=== PATIENT | female | born 1990 | race Caucasian/White ===

== ENCOUNTER 2017-08-20 07:17 | Emergency (ER) | payer OTHER ==
[~2017-08-20] VITALS: Ht 165.1 cm; Wt 59.0 kg
[~2017-08-20 07:17] MED LIST: Albuterol17 G1 INH; Amoxicillin500 MG PO; Amoxicillin875 MG PO; GUAIATUSSIN AC L5 ML PO; META800 PO; Naprosyn500 MG PO; PRED20 PO; Percocet 5-3251 EACH PO; Phenergan/Code480 ML PO
[2017-08-20] MEDS ORDERED: LAMO25 PO (07:35)
[2017-08-20] MEDS ORDERED: CLON1 PO (07:36)
[2017-08-20] MEDS ORDERED: BUPR150ER PO (07:36)
[2017-08-20] MEDS ORDERED: Norco 5-325 Ta1 EACH PO (07:54)
[2017-08-20] MEDS ORDERED: Cleocin HCl150 MG PO (07:54)
== END 2017-08-20 08:10 | disposition home or self-care (01) ==
LOC: ER 07:17
DX: L03.011 Cellulitis of right finger (principal); F32.9 Major depressive disorder, single episode, unspecified; F41.9 Anxiety disorder, unspecified; F17.210 Nicotine dependence, cigarettes, uncomplicated; Z88.5 Allergy status to narcotic agent; Z88.8 Allergy status to other drugs, medicaments and biological substances; Z79.899 Other long term (current) drug therapy
CPT/HCPCS: 10060; 99283

== ENCOUNTER 2018-05-01 16:41 | Emergency (ER) | payer OTHER ==
[~2018-05-01] VITALS: Ht 165.1 cm; Wt 63.5 kg
[~2018-05-01 16:41] MED LIST changes: +BUPR150ER PO; +CLON1 PO; +Cleocin HCl150 MG PO; +LAMO25 PO; +Norco 5-325 Ta1 EACH PO
[2018-05-01] MEDS ORDERED: HYDR1TAB94 PO (18:31)
[2018-05-01] MEDS ORDERED: ONDA4ODT MM (18:31)
== END 2018-05-01 18:43 | disposition home or self-care (01) ==
LOC: ER 16:41
DX: S09.90XA Unspecified injury of head, initial encounter (principal); S20.02XA Contusion of left breast, initial encounter; F32.9 Major depressive disorder, single episode, unspecified; F41.9 Anxiety disorder, unspecified; F17.210 Nicotine dependence, cigarettes, uncomplicated; Z88.5 Allergy status to narcotic agent; Z88.8 Allergy status to other drugs, medicaments and biological substances; Z79.899 Other long term (current) drug therapy; V43.52XA Car driver injured in collision with other type car in traffic accident, initial encounter
CPT/HCPCS: 71101; 99284-25

== ENCOUNTER 2019-10-18 22:26 | Emergency (ER) | payer OTHER ==
[~2019-10-18] VITALS: Ht 165.1 cm; Wt 59.0 kg
[~2019-10-18 22:26] MED LIST changes: +HYDR1TAB94 PO; +ONDA4ODT MM
== END 2019-10-18 23:35 | disposition home or self-care (01) ==
LOC: ER 22:26
DX: S43.101A Unspecified dislocation of right acromioclavicular joint, initial encounter (principal); F32.9 Major depressive disorder, single episode, unspecified; F41.9 Anxiety disorder, unspecified; F17.210 Nicotine dependence, cigarettes, uncomplicated; F11.90 Opioid use, unspecified, uncomplicated; Z88.5 Allergy status to narcotic agent; Z88.8 Allergy status to other drugs, medicaments and biological substances; Z79.899 Other long term (current) drug therapy; W03.XXXA Other fall on same level due to collision with another person, initial encounter; Y92.009 Unspecified place in unspecified non-institutional (private) residence as the place of occurrence of the external cause
CPT/HCPCS: 73030; 99283-25

== ENCOUNTER 2021-03-04 20:16 | Inpatient (IN) | payer OTHER ==
[~2021-03-04] VITALS: Ht 165.1 cm; Wt 67.4 kg
[2021-03-04 21:04] LABS: Hematocrit 35.9 % (33.0-51.0); Hemoglobin 12.4 g/dL (11.5-16.0); Mean Corpuscular HGB 27.9 pg (26.0-34.0); Mean Corpuscular HGB Conc 34.5 g/dL (31.5-36.5); Mean Corpuscular Volume 81 fL (80-100); Mean Platelet Volume 9.5 fL (9.1-12.4); Platelet Count 361 K/mm3 (150-400); RDW Coefficient Variation 13.6 % (11.7-14.2); RDW Standard Deviation 40.3 fL (35.1-46.3); Red Blood Cell Count 4.45 M/mm3 (3.80-5.20); White Blood Cell Count 30.03 K/mm3 (4.00-11.30)
[2021-03-04 21:22] LABS: BAND PERCENT MAN 4 % (0-8); BASOPHILS PERCENT MAN 0 % (0-2); EOSINOPHILS PERCENT MAN 0 % (0-6); LYMPHOCYTES % ATYPICAL MANUAL 2 % (0-0); LYMPHOCYTES PERCENT MAN 17 % (21-46); MONOCYTES PERCENT MAN 9 % (4-13); NEUTROPHILS ABSOLUTE MAN 21.62 K/mm3 (1.96-9.15); SEG NEUTROPHILS PERCENT MAN 68 % (41-73); TOTAL CELLS COUNTED 100
[2021-03-04 21:27] LABS: Alanine Aminotransfer (ALT/SGP 69 U/L (12-78); Albumin, Blood 1.7 g/dL (3.4-5.0); Albumin/Globulin Ratio 0.3 (0.8-1.8); Alk Phos 239 U/L (50-136); Anion Gap 10 mmol/L (6-16); Aspartate Aminotrans (AST/SGOT 100 U/L (12-37); Bilirubin, Total 0.5 mg/dL (0.1-1.0); Blood Urea Nitrogen 8 mg/dL (8-24); Bun/Creatinine Ratio 13.3 (12.0-20.0); CO2, Blood 29 mmol/L (21-32); Chloride, Blood 89 mmol/L (98-108); Globulin, Blood 6.3 g/dL (2.2-4.0); Glomerular Filtration Rate >60 (60-); Glucose, Blood 107 mg/dL (70-99); Potassium, Blood 3.4 mmol/L (3.5-5.5); Sodium, Blood 128 mmol/L (136-145)
[2021-03-04 22:20] LABS: Influenza A, PCR NEGATIVE (NEGATIVE); Influenza B, PCR NEGATIVE (NEGATIVE); Resp Syncytial Virus, PCR NEGATIVE (NEGATIVE); SARS-Cov-2 (COVID-19) PCR, MMC NEGATIVE (NEGATIVE)
[2021-03-04 22:27] LABS: Source, Urine Clean Catch
[2021-03-04 22:30] LABS: Bilirubin, Urine Neg (Neg); Blood, Urine 3+ (Neg); Glucose Qualitative, Urine Neg (Neg); Ketones, Urine Neg (Neg); Leukocyte Esterase, Urine 1+ (Neg); Nitrite, Urine Neg (Neg); Protein, Urine 2+ (Neg); Specific Gravity, Urine 1.015 (1.003-1.022); Urobilinogen, Urine NORM (Normal); pH, Urine 6.5 (5.0-8.0)
[2021-03-04 22:31] LABS: Appearance, Urine Clear (Clear); Color, Urine Yellow (P-Yellow)
[2021-03-04 22:36] LABS: Red Blood Cells, Urine 0-2 /hpf (0-2); Squamous Epithelial Cells Few /hpf (Few); White Blood Cells, Urine 0-2 /hpf (0-5)
[2021-03-04 22:37] LABS: Amorphous Light (0-Heavy); Bacteria Few /hpf
[2021-03-04 23:33] LABS: Anti-Xa UFH, PHA Monitoring <0.10 IU/mL; International Normalized Ratio 1.26
[2021-03-05] MEDS ORDERED: CLONAZEPAM1 MG (00:10)
[2021-03-05] MEDS ORDERED: BUPRENORPHIN-N1 EAC5 SL (00:10)
--- NOTE | 2021-03-05 04:38 | NUR ---
PATIENT ADMIT FROM ED 0026 VIA STRETCHER, ALERT AND ORIENTATED, STAND BY ASSIST TO BEDSIDE COMMODE, RA RR 12-16 O2 SAT 92-93%, LUNGS COARSE, DIMINISHED LOWER LOBES, HEART RATE 120-130'S NEW ORDER FOR LOPRESSOR 12.5 BID PO, PATIENT AROUND 0300 OXYGEN 88-89 % CURRENTLY ON 3L NC 92-95% O2 SATURATIONS, ABDOMEN SOFT NONTENDER BTX 4 LAST BM 03/04/21 SOFT REPORTED DIARRHEA AT HOME FOR THREE DAYS NO NOTED BM SINCE ADMISSION, URINE IS CLEAR YELLOW NONODOROUS, SKIN, TRACK PACE SCABBED IN RAC, TATOO'S OTHERWISE INTACT, LFA IV AND RFA IV INFUSING, HEPARIN 18UNITS/KG/HR AT 21.6ML/HR NEXT DRAW AT 0600. PATIENT KEPT NPO OVERNIGHT, WILL CONTINUE TO MONITOR ON TELEMETRY HEART HAS DECREASED TO 110-120'S.
[2021-03-05 06:30] LABS: BASOPHILS ABSOLUTE AUTO 0.17 K/mm3 (0.00-0.23); BASOPHILS PERCENT AUTO 1 % (0-2); EOSINOPHILS ABSOLUTE AUTO 0.11 K/mm3 (0.00-0.68); EOSINOPHILS PERCENT AUTO 0 % (0-6); Hematocrit 33.1 % (33.0-51.0); Hemoglobin 10.9 g/dL (11.5-16.0); Mean Corpuscular HGB 27.9 pg (26.0-34.0); Mean Corpuscular HGB Conc 32.9 g/dL (31.5-36.5); Mean Corpuscular Volume 85 fL (80-100); Mean Platelet Volume 9.2 fL (9.1-12.4); Platelet Count 289 K/mm3 (150-400); RDW Standard Deviation 43.3 fL (35.1-46.3); Red Blood Cell Count 3.91 M/mm3 (3.80-5.20); White Blood Cell Count 26.43 K/mm3 (4.00-11.30)
[2021-03-05 06:34] LABS: IMMATURE GRAN PERCENT AUTO 1 % (0-1); LYMPHOCYTES ABSOLUTE AUTO 2.77 K/mm3 (0.84-5.20); LYMPHOCYTES PERCENT AUTO 11 % (21-46); MONOCYTES ABSOLUTE AUTO 2.36 K/mm3 (0.16-1.47); MONOCYTES PERCENT AUTO 9 % (4-13); NEUTROPHILS ABSOLUTE AUTO 20.72 K/mm3 (1.96-9.15); NEUTROPHILS PERCENT AUTO 79 % (41-73)
[2021-03-05 06:45] LABS: Alanine Aminotransfer (ALT/SGP 49 U/L (12-78); Albumin/Globulin Ratio 0.4 (0.8-1.8); Alk Phos 179 U/L (50-136); Anion Gap 8 mmol/L (6-16); Aspartate Aminotrans (AST/SGOT 55 U/L (12-37); Bilirubin, Total 0.6 mg/dL (0.1-1.0); Blood Urea Nitrogen 6 mg/dL (8-24); Bun/Creatinine Ratio 11.2 (12.0-20.0); CO2, Blood 27 mmol/L (21-32); Calcium, Blood 7.9 mg/dL (8.5-10.1); Chloride, Blood 102 mmol/L (98-108); Creatinine, Blood 0.54 mg/dL (0.40-1.00); Globulin, Blood 5.1 g/dL (2.2-4.0); Glomerular Filtration Rate >60 (60-); Glucose, Blood 116 mg/dL (70-99); Potassium, Blood 3.4 mmol/L (3.5-5.5); Sodium, Blood 137 mmol/L (136-145); Total Protein, Blood 7.1 g/dL (6.4-8.2)
[2021-03-05 07:20] LABS: BAND PERCENT MAN 1 % (0-8); BASOPHILS PERCENT MAN 0 % (0-2); EOSINOPHILS ABSOLUTE MAN 0.26 K/mm3 (0.00-0.68); EOSINOPHILS PERCENT MAN 1 % (0-6); LYMPHOCYTES PERCENT MAN 11 % (21-46); MONOCYTES ABSOLUTE MAN 0.52 K/mm3 (0.16-1.47); MONOCYTES PERCENT MAN 2 % (4-13); NEUTROPHILS ABSOLUTE MAN 22.72 K/mm3 (1.96-9.15); SEG NEUTROPHILS PERCENT MAN 85 % (41-73); TOTAL CELLS COUNTED 100
--- NOTE | 2021-03-05 17:57 | NUR ---
SHIFT NOTE PT WITH FEVER AT THE END OF SHIFT WITH HR IN 130s, WILL REASSESS IN [address] FITCH IS CALLED ABOUT HR AND A 500ML BOLUS ORDERED FOR HR, LS CLEAR PRIOR TO BOLUS AND AT THE END OF BOLUS THAT IS CONCLUDING. PT REAMINS TACHY AT THE TIME OF THIS NOTE BUT IS SLOWLY TRENDING DOWN POST TYLENOL ADMINISTRATION. PT WITH GOOD PO INTAKE, UP TO BEDSIDE COMMODE WITH 1,200ML OUTPUT WHEN UP TO COMMODE. PT A/O X4, A LITTLE SLOW TO ANSWER QUESTIONS BUT ANSWERS APPROPPRIATELY. HEPARIN DRIP INFUSING AT 20MCG/KG/HR. PT HAS RECIEVED VANCOMYCIN AND ZOSYN TODAY. PT DENIES ANY NEW OR WORSENING CP OR SOB. VSS ASIDE FROM FEVER AT THE END OF THE SHIFT.
[2021-03-05 22:34] LABS: Vancomycin, Trough 3.6 ug/mL (5.0-10.0)
[2021-03-06 03:55] LABS: BASOPHILS ABSOLUTE AUTO 0.08 K/mm3 (0.00-0.23); BASOPHILS PERCENT AUTO 0 % (0-2); EOSINOPHILS ABSOLUTE AUTO 0.23 K/mm3 (0.00-0.68); EOSINOPHILS PERCENT AUTO 1 % (0-6); Hematocrit 29.3 % (33.0-51.0); Hemoglobin 9.8 g/dL (11.5-16.0); IMMATURE GRAN ABSOLUTE AUTO 0.23 K/mm3 (0.00-0.10); IMMATURE GRAN PERCENT AUTO 1 % (0-1); LYMPHOCYTES ABSOLUTE AUTO 3.91 K/mm3 (0.84-5.20); LYMPHOCYTES PERCENT AUTO 16 % (21-46); MONOCYTES ABSOLUTE AUTO 1.52 K/mm3 (0.16-1.47); MONOCYTES PERCENT AUTO 6 % (4-13); Mean Corpuscular HGB 27.8 pg (26.0-34.0); Mean Corpuscular HGB Conc 33.4 g/dL (31.5-36.5); Mean Corpuscular Volume 83 fL (80-100); Mean Platelet Volume 9.2 fL (9.1-12.4); NEUTROPHILS ABSOLUTE AUTO 18.81 K/mm3 (1.96-9.15); NEUTROPHILS PERCENT AUTO 76 % (41-73); Platelet Count 345 K/mm3 (150-400); RDW Coefficient Variation 14.4 % (11.7-14.2); RDW Standard Deviation 43.9 fL (35.1-46.3); Red Blood Cell Count 3.52 M/mm3 (3.80-5.20); White Blood Cell Count 24.78 K/mm3 (4.00-11.30)
[2021-03-06 04:13] LABS: Alanine Aminotransfer (ALT/SGP 37 U/L (12-78); Albumin, Blood 1.6 g/dL (3.4-5.0); Albumin/Globulin Ratio 0.3 (0.8-1.8); Alk Phos 176 U/L (50-136); Anion Gap 8 mmol/L (6-16); Aspartate Aminotrans (AST/SGOT 40 U/L (12-37); Bilirubin, Total 0.4 mg/dL (0.1-1.0); Blood Urea Nitrogen 5 mg/dL (8-24); Bun/Creatinine Ratio 9.3 (12.0-20.0); CO2, Blood 28 mmol/L (21-32); Calcium, Blood 7.7 mg/dL (8.5-10.1); Chloride, Blood 100 mmol/L (98-108); Creatinine, Blood 0.54 mg/dL (0.40-1.00); Globulin, Blood 4.8 g/dL (2.2-4.0); Glomerular Filtration Rate >60 (60-); Glucose, Blood 141 mg/dL (70-99); Potassium, Blood 3.1 mmol/L (3.5-5.5); Sodium, Blood 136 mmol/L (136-145); Total Protein, Blood 6.4 g/dL (6.4-8.2)
--- NOTE | 2021-03-06 05:03 | NUR ---
ALERT AND ORIENTATED, CALLS APPROPRIATELY, PATIENT HEART RATE 120-147 AROUND 0300 GAVE LOPRESSOR 5MG IVP HR NOW 117 PATIENT ASYMPTOMATIC, TEMPERATURE 101.7 GAVE TYLENOL 1000MG TAB PO TEMPERATURE 97.1 NOW, PATIENT XA <0.10 AWAITING NEW ORDERS PHARMACY WILL PUT IN, POTASSIUM 3.1 NEW ORDERS FOR KCL 40MEQ X 1 IV WILL BE DIFFICULT TO BE ON TIME, PATIENT ONLY HAS A MIDLINE AND LFA IV RUNNING HEPARIN NO PIGGYBACKS, IV RUNNING MAINTENCE FLUIDS WITH ANTIBIOTICS, PATIENT COULD USE ANOTHER IV BUT IS A DIFFICULT STICK, WILL ADDRESS WITH DAYSHIFT ON THOUGHTS ABOUT A PICC LINE FOR PATIENT.
--- NOTE | 2021-03-06 05:47 | NUR ---
POTASSIUM NOT RECEIVED FROM PHARMACY UNTIL 539, STARTED IMMEDIATELY, CHARGE AWARE WILL NEED PICC LINE AND MEDICATIONS WILL BE LATE, LACK OF ACCESS TO RUN ALL CURRENT FLUIDS
[2021-03-06 14:17] LABS: Influenza A, PCR NEGATIVE (NEGATIVE); Influenza B, PCR NEGATIVE (NEGATIVE); Resp Syncytial Virus, PCR NEGATIVE (NEGATIVE); SARS-Cov-2 (COVID-19) PCR, MMC NEGATIVE (NEGATIVE)
--- NOTE | 2021-03-06 19:06 | NUR ---
SHIFT SUMMARY PT APPEAR TO BE SLEEPING FOR MAJORITY OF SHIFT, WAKES EASILY, ORIENTED x4; CALM AND COOPERATIVE WITH CARE. PT RESTING IN BED DURING SHIFT. UP 1 PERSON ASSIST TO BSC. PT DENIES PAIN, CHEST PAIN, SOB, NASUEA AND DIZZINESS. PT BP SOFT T/O SHIFT, HELD LOPRESSOR THIS AM, NOTIFIED DR FITCH OF HR AND BP THIS AFTERNOON, NEW ORDERS TO GIVE THIS EVENING. HR ELEVATED THIS AFTERNOON AGAIN, NOTIFED DR FITCH NEW ORDER FOR NS AT 75 ml/hr. SPO2 >90% DURING SHIFT, TITRATED FROM 2L O2 VIA NC TO RA. FEBRILE THIS AFTERNOON, MEDCIATED PER EMAR AND REMOVED SERVAL BLANKETS. PT RECIEVING ANTIBIOTICS AND POTASSIUM REPLACEMENTS. OTHER VSS. NO OTHER ACUTE CHANGES NOTED. REPORT GIVEN TO ONCOMING RN.
[2021-03-06 23:38] LABS: Vancomycin, Trough 12.6 ug/mL (5.0-10.0)
[2021-03-07 02:07] LABS: BASOPHILS ABSOLUTE AUTO 0.06 K/mm3 (0.00-0.23); BASOPHILS PERCENT AUTO 0 % (0-2); EOSINOPHILS ABSOLUTE AUTO 0.28 K/mm3 (0.00-0.68); EOSINOPHILS PERCENT AUTO 1 % (0-6); Hematocrit 27.4 % (33.0-51.0); Hemoglobin 9.1 g/dL (11.5-16.0); IMMATURE GRAN ABSOLUTE AUTO 0.23 K/mm3 (0.00-0.10); IMMATURE GRAN PERCENT AUTO 1 % (0-1); LYMPHOCYTES ABSOLUTE AUTO 2.82 K/mm3 (0.84-5.20); LYMPHOCYTES PERCENT AUTO 14 % (21-46); MONOCYTES ABSOLUTE AUTO 1.53 K/mm3 (0.16-1.47); MONOCYTES PERCENT AUTO 7 % (4-13); Mean Corpuscular HGB 27.7 pg (26.0-34.0); Mean Corpuscular HGB Conc 33.2 g/dL (31.5-36.5); Mean Corpuscular Volume 84 fL (80-100); Mean Platelet Volume 9.1 fL (9.1-12.4); NEUTROPHILS ABSOLUTE AUTO 15.78 K/mm3 (1.96-9.15); NEUTROPHILS PERCENT AUTO 76 % (41-73); Platelet Count 381 K/mm3 (150-400); RDW Coefficient Variation 14.2 % (11.7-14.2); RDW Standard Deviation 43.7 fL (35.1-46.3); Red Blood Cell Count 3.28 M/mm3 (3.80-5.20)
[2021-03-07 02:22] LABS: Alanine Aminotransfer (ALT/SGP 26 U/L (12-78); Albumin, Blood 1.4 g/dL (3.4-5.0); Albumin/Globulin Ratio 0.3 (0.8-1.8); Alk Phos 166 U/L (50-136); Anion Gap 7 mmol/L (6-16); Aspartate Aminotrans (AST/SGOT 27 U/L (12-37); Bilirubin, Total 0.4 mg/dL (0.1-1.0); Blood Urea Nitrogen 4 mg/dL (8-24); Bun/Creatinine Ratio 5.8 (12.0-20.0); CO2, Blood 28 mmol/L (21-32); Calcium, Blood 7.7 mg/dL (8.5-10.1); Chloride, Blood 102 mmol/L (98-108); Creatinine, Blood 0.69 mg/dL (0.40-1.00); Glomerular Filtration Rate >60 (60-); Glucose, Blood 129 mg/dL (70-99); Sodium, Blood 137 mmol/L (136-145); Total Protein, Blood 6.4 g/dL (6.4-8.2)
--- NOTE | 2021-03-07 06:02 | NUR ---
SHIFT SUMMARY PT IS ALERT AND ORIENTED AND VERY PLEASANT. PT DENIES CHEST PAIN/PRESSURE. PT HAD ELEVATED TEMP AND HEART RATE DURING THE NIGHT WHICH WAS CONTROLLED WITH MEDS PER EMAR AND ICE PACKS. BP, AND SATS WERE STABLE. PT IS ABLE TO GET UP TO BSC WITH SBA. CALL LIGHT IS WITHIN REACH.
--- NOTE | 2021-03-07 18:37 | NUR ---
SHIFT SUMMARY PT A&Ox4; CALM AND COOPERATIVE WITH CARE. PT REPORTS FEELING ANXIOUS, MEDICATED WITH PRN WITH POSITIVE RESULTS. PT DENIES PAIN, CHEST PAIN, SOB, NAUSEA AND DIZZINESS. DR VEE AT BEDSIDE THIS AFTERNOON. PT RECEIVING IV ANTIBIOTICS AND HEPARIN GTT. PT FEBRILE MEDICATED WITH TYLENOL. HR ELEVATED. OTHER VSS. NO OTHER ACUTE CHANGES NOTED. WILL CONTINUE TO MONITOR UNTIL REPORT GIVEN TO ONCOMING RN.
[2021-03-08 06:27] LABS: BASOPHILS ABSOLUTE AUTO 0.06 K/mm3 (0.00-0.23); BASOPHILS PERCENT AUTO 0 % (0-2); EOSINOPHILS ABSOLUTE AUTO 0.27 K/mm3 (0.00-0.68); EOSINOPHILS PERCENT AUTO 2 % (0-6); Hematocrit 25.5 % (33.0-51.0); Hemoglobin 8.3 g/dL (11.5-16.0); IMMATURE GRAN ABSOLUTE AUTO 0.13 K/mm3 (0.00-0.10); IMMATURE GRAN PERCENT AUTO 1 % (0-1); LYMPHOCYTES ABSOLUTE AUTO 3.35 K/mm3 (0.84-5.20); LYMPHOCYTES PERCENT AUTO 19 % (21-46); MONOCYTES ABSOLUTE AUTO 1.26 K/mm3 (0.16-1.47); MONOCYTES PERCENT AUTO 7 % (4-13); Mean Corpuscular HGB 27.6 pg (26.0-34.0); Mean Corpuscular HGB Conc 32.5 g/dL (31.5-36.5); Mean Corpuscular Volume 85 fL (80-100); Mean Platelet Volume 8.9 fL (9.1-12.4); NEUTROPHILS ABSOLUTE AUTO 12.72 K/mm3 (1.96-9.15); NEUTROPHILS PERCENT AUTO 72 % (41-73); Platelet Count 425 K/mm3 (150-400); RDW Coefficient Variation 14.6 % (11.7-14.2); RDW Standard Deviation 45.7 fL (35.1-46.3); Red Blood Cell Count 3.01 M/mm3 (3.80-5.20); White Blood Cell Count 17.79 K/mm3 (4.00-11.30)
--- NOTE | 2021-03-08 06:33 | NUR ---
SHIFT SUMMARY PT A&OX4. SP02>92% ON RA. TELEMETRY SHOWS NSR/SINUS TACH, HR 80'S-130'S. PT HR ELEVATED TO 130'S. CALL PLACED TO MD PEÑA. MD PEÑA W/ ORDERS FOR 1L NS BOLUS. PT UP TO BSC MULTIPLE TIMES TO VOID. PT DENIES PAIN. PT DID HAVE ELEVATED TEMP OF 100.6. TYLENOL GIVEN PER EMAR. PT C/O OF ANXIETY AT START OF SHIFT, PRN CLONOZAPAM GIVEN PER EMAR X1. HEPARIN INFUSED PER EMAR. PT DID NOT SLEEP MUCH DURING NIGHT. CALL LIGHT IN REACH.
[2021-03-08 06:39] LABS: Alanine Aminotransfer (ALT/SGP 22 U/L (12-78); Albumin, Blood 1.3 g/dL (3.4-5.0); Albumin/Globulin Ratio 0.3 (0.8-1.8); Alk Phos 169 U/L (50-136); Anion Gap 5 mmol/L (6-16); Aspartate Aminotrans (AST/SGOT 24 U/L (12-37); Bilirubin, Total 0.2 mg/dL (0.1-1.0); Blood Urea Nitrogen 3 mg/dL (8-24); Bun/Creatinine Ratio 4.8 (12.0-20.0); CO2, Blood 26 mmol/L (21-32); Calcium, Blood 7.6 mg/dL (8.5-10.1); Chloride, Blood 108 mmol/L (98-108); Creatinine, Blood 0.63 mg/dL (0.40-1.00); Globulin, Blood 5.1 g/dL (2.2-4.0); Glomerular Filtration Rate >60 (60-); Glucose, Blood 107 mg/dL (70-99); Magnesium, Blood 1.9 mg/dL (1.6-2.4); Phosphorus, Blood 2.5 mg/dL (2.5-4.9); Potassium, Blood 3.4 mmol/L (3.5-5.5); Sodium, Blood 139 mmol/L (136-145); Total Protein, Blood 6.4 g/dL (6.4-8.2)
--- NOTE | 2021-03-08 18:35 | NUR ---
SHIFT SUMMARY PT A&Ox4; COOPERATIVE WITH CARE. PT ANXIOUS, REQUESTING PRN MED. PT REPORTS HEADACHE THIS AFTERNOON, MEDICATED WITH TYLENOL WITH POSITIVE RESULTS. PT REPORTS WORSENTING COUGH, NOTIFIED DR SETHI, NEW ORDER FOR COUGH SYRUP, ADMINISTERED WITH MINIMAL RESULTS. PT DENIES CHEST PAIN, NAUSEA, DIZZINESS AND NUMB/TINGLING. PT DOES REPORTS LOSS OF APPETITE. CONTINUES TO RECEIVED IV ANTIBIOTICS AND HEPARIN GTT. HR 110-120'S. OTHER VSS. NO OTHER ACUTE CHANGES NOTED DURING SHIFT. WILL CONTINUE TO MONITOR UNITL REPORT GIVEN TO ONCOMING RN.
--- NOTE | 2021-03-09 05:25 | NUR ---
SHIFT SUMMARY NO ACUTE CHANGES THIS SHIFT. PT A&OX4. SP02>92% ON RA. PT HAS DRY FREQUENT COUGH, PRN COUGH MED GIVEN X1. TELEMETRY READS SINUS TACH, HR 100'S-120'S. PT DENIED PAIN. FLUIDS AND HEPARIN INFUSED PER EMAR. PT UP TO BSC INDEPENDENTLY TO VOID NAD HAVE ONE SMALL BM THIS SHIFT. CALL LIGHT IN REACH.
[2021-03-09 05:34] LABS: BASOPHILS ABSOLUTE AUTO 0.05 K/mm3 (0.00-0.23); BASOPHILS PERCENT AUTO 0 % (0-2); EOSINOPHILS ABSOLUTE AUTO 0.19 K/mm3 (0.00-0.68); EOSINOPHILS PERCENT AUTO 1 % (0-6); Hematocrit 25.1 % (33.0-51.0); IMMATURE GRAN ABSOLUTE AUTO 0.17 K/mm3 (0.00-0.10); IMMATURE GRAN PERCENT AUTO 1 % (0-1); LYMPHOCYTES ABSOLUTE AUTO 3.21 K/mm3 (0.84-5.20); LYMPHOCYTES PERCENT AUTO 17 % (21-46); MONOCYTES ABSOLUTE AUTO 0.97 K/mm3 (0.16-1.47); MONOCYTES PERCENT AUTO 5 % (4-13); Mean Corpuscular HGB 27.5 pg (26.0-34.0); Mean Corpuscular HGB Conc 31.9 g/dL (31.5-36.5); Mean Corpuscular Volume 86 fL (80-100); Mean Platelet Volume 8.9 fL (9.1-12.4); NEUTROPHILS ABSOLUTE AUTO 13.85 K/mm3 (1.96-9.15); NEUTROPHILS PERCENT AUTO 75 % (41-73); Platelet Count 426 K/mm3 (150-400); RDW Coefficient Variation 14.7 % (11.7-14.2); RDW Standard Deviation 46.9 fL (35.1-46.3); Red Blood Cell Count 2.91 M/mm3 (3.80-5.20); White Blood Cell Count 18.44 K/mm3 (4.00-11.30)
[2021-03-09 06:23] LABS: Alanine Aminotransfer (ALT/SGP 20 U/L (12-78); Albumin, Blood 1.3 g/dL (3.4-5.0); Albumin/Globulin Ratio 0.2 (0.8-1.8); Alk Phos 188 U/L (50-136); Anion Gap 7 mmol/L (6-16); Aspartate Aminotrans (AST/SGOT 23 U/L (12-37); Bilirubin, Total 0.3 mg/dL (0.1-1.0); Blood Urea Nitrogen 3 mg/dL (8-24); Bun/Creatinine Ratio 4.7 (12.0-20.0); CO2, Blood 23 mmol/L (21-32); Calcium, Blood 7.8 mg/dL (8.5-10.1); Chloride, Blood 108 mmol/L (98-108); Creatinine, Blood 0.64 mg/dL (0.40-1.00); Globulin, Blood 5.3 g/dL (2.2-4.0); Glomerular Filtration Rate >60 (60-); Glucose, Blood 91 mg/dL (70-99); Magnesium, Blood 1.8 mg/dL (1.6-2.4); Potassium, Blood 3.7 mmol/L (3.5-5.5); Sodium, Blood 138 mmol/L (136-145); Thyroid Stimulating Hormone 0.927 uIU/mL (0.360-4.800); Total Protein, Blood 6.6 g/dL (6.4-8.2)
--- NOTE | 2021-03-09 17:38 | NUR ---
PT SUMMARY: NO ACUTE CHANGE FOR THE SHIFT, VITALS HAS BEEN STABLE. ALERT AND ORIENTED, CALM AND COOPERATIVE. PT HAS HAD DRY COUGH, COUGH SYRUP GIVEN TWICE FOR THE SHIFT, IV FENTANYL GIVEN AT THE END OF THE SHIFT FOR ABDOMINAL PAIN AND WAS EFFECTIVE. PT DECLINED MEALS FOR THE SHIFT, WAS ONLY DRINKING FLUIDS. ALBUMIN X1 INFUSED, HEP GTT RUNNING STILL AT 32/KG/HR, NS AT 125MLS/HR. PT HAS BEEN GETTING UP INDEPENDENTLY TO USE BEDSIDE COMMODE. NO OTHER ISSUES REPORTED. PT CALLS APPROPRIATELY ABLE TO MAKE NEEDS KNOWN. WILL REPORT TO ONCOMING SHIFT
[2021-03-10 04:49] LABS: BASOPHILS ABSOLUTE AUTO 0.03 K/mm3 (0.00-0.23); BASOPHILS PERCENT AUTO 0 % (0-2); EOSINOPHILS ABSOLUTE AUTO 0.16 K/mm3 (0.00-0.68); EOSINOPHILS PERCENT AUTO 1 % (0-6); Hematocrit 23.5 % (33.0-51.0); Hemoglobin 7.6 g/dL (11.5-16.0); IMMATURE GRAN ABSOLUTE AUTO 0.13 K/mm3 (0.00-0.10); IMMATURE GRAN PERCENT AUTO 1 % (0-1); LYMPHOCYTES ABSOLUTE AUTO 3.03 K/mm3 (0.84-5.20); LYMPHOCYTES PERCENT AUTO 20 % (21-46); MONOCYTES ABSOLUTE AUTO 0.74 K/mm3 (0.16-1.47); MONOCYTES PERCENT AUTO 5 % (4-13); Mean Corpuscular HGB 27.8 pg (26.0-34.0); Mean Corpuscular HGB Conc 32.3 g/dL (31.5-36.5); Mean Corpuscular Volume 86 fL (80-100); Mean Platelet Volume 8.6 fL (9.1-12.4); NEUTROPHILS ABSOLUTE AUTO 10.79 K/mm3 (1.96-9.15); NEUTROPHILS PERCENT AUTO 72 % (41-73); Platelet Count 432 K/mm3 (150-400); RDW Coefficient Variation 14.7 % (11.7-14.2); RDW Standard Deviation 45.4 fL (35.1-46.3); Red Blood Cell Count 2.73 M/mm3 (3.80-5.20); White Blood Cell Count 14.88 K/mm3 (4.00-11.30)
[2021-03-10 05:49] LABS: Alanine Aminotransfer (ALT/SGP 19 U/L (12-78); Albumin, Blood 1.6 g/dL (3.4-5.0); Albumin/Globulin Ratio 0.3 (0.8-1.8); Alk Phos 179 U/L (50-136); Anion Gap 7 mmol/L (6-16); Aspartate Aminotrans (AST/SGOT 21 U/L (12-37); Bilirubin, Total 0.4 mg/dL (0.1-1.0); Blood Urea Nitrogen 3 mg/dL (8-24); Bun/Creatinine Ratio 4.4 (12.0-20.0); CO2, Blood 24 mmol/L (21-32); Calcium, Blood 7.9 mg/dL (8.5-10.1); Chloride, Blood 107 mmol/L (98-108); Creatinine, Blood 0.68 mg/dL (0.40-1.00); Globulin, Blood 5.2 g/dL (2.2-4.0); Glomerular Filtration Rate >60 (60-); Glucose, Blood 101 mg/dL (70-99); Magnesium, Blood 1.7 mg/dL (1.6-2.4); Phosphorus, Blood 3.8 mg/dL (2.5-4.9); Potassium, Blood 3.4 mmol/L (3.5-5.5); Sodium, Blood 138 mmol/L (136-145); Total Protein, Blood 6.8 g/dL (6.4-8.2)
--- NOTE | 2021-03-10 06:23 | NUR ---
Heparin drip continues at same rate through night. medicated as needed for pain per eMAR.
--- NOTE | 2021-03-10 09:00 | NUR ---
c/o abdominal pain, states 12/10 with coughing, 8-/10 afterwards. She declined the suboxone, states she prefers to have the fentanyl instead for better relief of her acute abdominal pain. STates not good appetite due to pain, but did want to have yogurt, jello and helen mist to drink. Took other p.o. medications without difficulty. No other complaints. Up to bedside commode with standby assistance.
--- NOTE | 2021-03-10 16:14 | NUR ---
This student gave report to receiving RN on medical floor. Anticipate transfering patient to room 312.
--- NOTE | 2021-03-10 17:08 | NUR ---
PATIENT IS ALERT AND ORIENTED X4. PATIENT IS IND IN ROOM TO BSC. PATIENT IS PLEASENT AND COOPERATIVE WITH CARE. PATIENT WAS A RECENT TRANSFER FROM PCU 9 AT 1645. PATIENT HAS HAD NO ACUTE EVENTS DURING SHIFT. PATIENT HAS HAD NO COMPLAINTS OF PAIN, NAUSEA, VOMITTING OR SOB THIS SHIFT. VITAL SIGNS REVIEWED. WILL MONITOR UNTIL SHIFT CHANGE.
[2021-03-11 03:34] LABS: BASOPHILS ABSOLUTE AUTO 0.03 K/mm3 (0.00-0.23); BASOPHILS PERCENT AUTO 0 % (0-2); EOSINOPHILS ABSOLUTE AUTO 0.17 K/mm3 (0.00-0.68); EOSINOPHILS PERCENT AUTO 1 % (0-6); Hematocrit 23.4 % (33.0-51.0); Hemoglobin 7.4 g/dL (11.5-16.0); IMMATURE GRAN ABSOLUTE AUTO 0.11 K/mm3 (0.00-0.10); IMMATURE GRAN PERCENT AUTO 1 % (0-1); LYMPHOCYTES ABSOLUTE AUTO 2.26 K/mm3 (0.84-5.20); LYMPHOCYTES PERCENT AUTO 16 % (21-46); MONOCYTES ABSOLUTE AUTO 0.81 K/mm3 (0.16-1.47); MONOCYTES PERCENT AUTO 6 % (4-13); Mean Corpuscular HGB 27.8 pg (26.0-34.0); Mean Corpuscular HGB Conc 31.6 g/dL (31.5-36.5); Mean Corpuscular Volume 88 fL (80-100); NEUTROPHILS ABSOLUTE AUTO 11.07 K/mm3 (1.96-9.15); NEUTROPHILS PERCENT AUTO 77 % (41-73); Platelet Count 466 K/mm3 (150-400); RDW Coefficient Variation 14.9 % (11.7-14.2); RDW Standard Deviation 47.1 fL (35.1-46.3); Red Blood Cell Count 2.66 M/mm3 (3.80-5.20); White Blood Cell Count 14.45 K/mm3 (4.00-11.30)
[2021-03-11 03:53] LABS: Alanine Aminotransfer (ALT/SGP 22 U/L (12-78); Albumin, Blood 1.5 g/dL (3.4-5.0); Albumin/Globulin Ratio 0.3 (0.8-1.8); Alk Phos 167 U/L (50-136); Anion Gap 6 mmol/L (6-16); Aspartate Aminotrans (AST/SGOT 36 U/L (12-37); Bilirubin, Total 0.3 mg/dL (0.1-1.0); Blood Urea Nitrogen 2 mg/dL (8-24); CO2, Blood 26 mmol/L (21-32); Calcium, Blood 8.3 mg/dL (8.5-10.1); Chloride, Blood 108 mmol/L (98-108); Creatinine, Blood 0.67 mg/dL (0.40-1.00); Globulin, Blood 5.3 g/dL (2.2-4.0); Glomerular Filtration Rate >60 (60-); Glucose, Blood 86 mg/dL (70-99); Sodium, Blood 140 mmol/L (136-145); Total Protein, Blood 6.8 g/dL (6.4-8.2)
--- NOTE | 2021-03-11 06:31 | NUR ---
SHIFT SUMMARY NO ACUTE EVENT IN THIS SHIFT PATIENT AOX4 REQUESTED FOR CLONAZEPAM AT BED TIME CALM AND PLAESANT NO SIZURES IN THIS SHIFT. CONT HEPARIN DRIPP NO CHANGES CONT THE SAME DOSE PER PHARMACY AT 4AM AFTER LABS RESULTS .
--- NOTE | 2021-03-11 17:31 | NUR ---
SHIFT SUMMARY PATIENT IS ALERT AND ORIENTED X4. PATIENT HAS BEEN PLEASENT BUT WITHDRAWN. PATIENT HAS REPORTED A HEADACHE AND A LOW GRADE FEVER WHICH WAS MEDICATED WITH TYLENOL GOOD RESULTS. PATIENT HAS HAD NO ACUTE EVENTS THIS SHIFT. HEPARIN HAS BEEN TITRATED BY PHARMACY. VITAL SIGNS REVIEWED. BED IN LOCKED AND LOWEST POSITION. WILL MONITOR UNTIL SCARF GLUER.
--- NOTE | 2021-03-12 05:02 | NUR ---
SHIFT SUMMARY A/O, ABLE TO MAKE NEEDS KNOWN. COOPERATIVE WITH CARE. CALLS AND ANSWERS QUESTIONS APPROPRIATELY. C/O PAIN/DISCOMFORT TO ABDOMEN; STATES FROM COUGHING, DID NOT REQUEST ANY INTERVENTION. UP INDEPENDENTLY TO BSC. RUNNING HEPARIN @ 40.8 ML/HR. HAS BEEN FEELING COLD AND HOT THIS AM. NOTED HR TO BE SLIGHTLY ELEVATED BUT APPEARS ON TREND WITH PREVIOUS. BED REMAINS IN LOWEST POSITION. CALL LIGHT AND BELONGINGS WITHIN REACH. REPORT TO ONCOMING RN.
[2021-03-12 06:18] LABS: BASOPHILS ABSOLUTE AUTO 0.04 K/mm3 (0.00-0.23); BASOPHILS PERCENT AUTO 0 % (0-2); EOSINOPHILS ABSOLUTE AUTO 0.06 K/mm3 (0.00-0.68); EOSINOPHILS PERCENT AUTO 0 % (0-6); Hematocrit 22.9 % (33.0-51.0); Hemoglobin 7.4 g/dL (11.5-16.0); IMMATURE GRAN ABSOLUTE AUTO 0.11 K/mm3 (0.00-0.10); IMMATURE GRAN PERCENT AUTO 1 % (0-1); LYMPHOCYTES ABSOLUTE AUTO 1.63 K/mm3 (0.84-5.20); LYMPHOCYTES PERCENT AUTO 9 % (21-46); MONOCYTES ABSOLUTE AUTO 0.48 K/mm3 (0.16-1.47); MONOCYTES PERCENT AUTO 3 % (4-13); Mean Corpuscular HGB 27.9 pg (26.0-34.0); Mean Corpuscular HGB Conc 32.3 g/dL (31.5-36.5); Mean Corpuscular Volume 86 fL (80-100); Mean Platelet Volume 8.2 fL (9.1-12.4); NEUTROPHILS ABSOLUTE AUTO 16.93 K/mm3 (1.96-9.15); NEUTROPHILS PERCENT AUTO 88 % (41-73); Platelet Count 495 K/mm3 (150-400); RDW Standard Deviation 45.6 fL (35.1-46.3); Red Blood Cell Count 2.65 M/mm3 (3.80-5.20); White Blood Cell Count 19.25 K/mm3 (4.00-11.30)
[2021-03-12 06:58] LABS: Alanine Aminotransfer (ALT/SGP 19 U/L (12-78); Albumin, Blood 2.1 g/dL (3.4-5.0); Albumin/Globulin Ratio 0.4 (0.8-1.8); Alk Phos 150 U/L (50-136); Anion Gap 6 mmol/L (6-16); Aspartate Aminotrans (AST/SGOT 20 U/L (12-37); Bilirubin, Total 0.4 mg/dL (0.1-1.0); Blood Urea Nitrogen 2 mg/dL (8-24); Bun/Creatinine Ratio 2.6 (12.0-20.0); CO2, Blood 26 mmol/L (21-32); Calcium, Blood 8.4 mg/dL (8.5-10.1); Chloride, Blood 104 mmol/L (98-108); Creatinine, Blood 0.76 mg/dL (0.40-1.00); Globulin, Blood 5.1 g/dL (2.2-4.0); Glomerular Filtration Rate >60 (60-); Glucose, Blood 97 mg/dL (70-99); Potassium, Blood 3.7 mmol/L (3.5-5.5); Sodium, Blood 136 mmol/L (136-145); Total Protein, Blood 7.2 g/dL (6.4-8.2)
[2021-03-12 12:50] LABS: Influenza A, PCR NEGATIVE (NEGATIVE); Influenza B, PCR NEGATIVE (NEGATIVE); Resp Syncytial Virus, PCR NEGATIVE (NEGATIVE); SARS-Cov-2 (COVID-19) PCR, MMC NEGATIVE (NEGATIVE)
--- NOTE | 2021-03-13 04:31 | NUR ---
SHIFT SUMMARY A/O, ABLE TO MAKE NEEDS KNOWN. COOPERATIVE WITH CARE. ANSWERS QUESTIONS APPROPRIATELY. C/O PAIN/DISCOMFORT TO ABDOMEN; STATES FROM COUGHING, NO REQUEST FOR INTERVENTION. UP INDEPENDENTLY TO BSC. CONTINUES /c HEPARIN DRIP @ 40.8 ML/HR. FLUIDS CHANGED TO D5 1/2 FOR POOR INTAKE. PATIENT STATES DOES NOT LIKE THE FOOD THAT IS GIVEN ON FOOD TRAY; REQUESTED A LARGE BOWL OF COTTAGE CHEESE /c PEACHES; FOOD TRAY REQUEST PLACED FOR AFTER PROCEDURE. APPEARED TO REST MUCH OF THE NIGHT. NO ACUTE CHANGES NOTED OFERNIGHT. BED REMAINS IN LOWEST POSITION. CALL LIGHT AND BELONGINGS WITHIN REACH. REPORT TO ONCOMING RN.
[2021-03-13 05:31] LABS: BASOPHILS ABSOLUTE AUTO 0.04 K/mm3 (0.00-0.23); BASOPHILS PERCENT AUTO 0 % (0-2); EOSINOPHILS ABSOLUTE AUTO 0.18 K/mm3 (0.00-0.68); EOSINOPHILS PERCENT AUTO 1 % (0-6); Hematocrit 23.5 % (33.0-51.0); Hemoglobin 7.6 g/dL (11.5-16.0); IMMATURE GRAN ABSOLUTE AUTO 0.06 K/mm3 (0.00-0.10); IMMATURE GRAN PERCENT AUTO 1 % (0-1); LYMPHOCYTES ABSOLUTE AUTO 2.43 K/mm3 (0.84-5.20); LYMPHOCYTES PERCENT AUTO 18 % (21-46); MONOCYTES PERCENT AUTO 5 % (4-13); Mean Corpuscular HGB Conc 32.3 g/dL (31.5-36.5); Mean Corpuscular Volume 87 fL (80-100); Mean Platelet Volume 8.2 fL (9.1-12.4); NEUTROPHILS ABSOLUTE AUTO 9.86 K/mm3 (1.96-9.15); NEUTROPHILS PERCENT AUTO 74 % (41-73); Platelet Count 426 K/mm3 (150-400); RDW Coefficient Variation 15.3 % (11.7-14.2); RDW Standard Deviation 46.7 fL (35.1-46.3); Red Blood Cell Count 2.71 M/mm3 (3.80-5.20); White Blood Cell Count 13.27 K/mm3 (4.00-11.30)
[2021-03-13 06:15] LABS: Alanine Aminotransfer (ALT/SGP 17 U/L (12-78); Albumin, Blood 1.9 g/dL (3.4-5.0); Albumin/Globulin Ratio 0.4 (0.8-1.8); Alk Phos 132 U/L (50-136); Anion Gap 6 mmol/L (6-16); Aspartate Aminotrans (AST/SGOT 22 U/L (12-37); Bilirubin, Total 0.5 mg/dL (0.1-1.0); Blood Urea Nitrogen 3 mg/dL (8-24); Bun/Creatinine Ratio 3.9 (12.0-20.0); CO2, Blood 27 mmol/L (21-32); Calcium, Blood 7.9 mg/dL (8.5-10.1); Chloride, Blood 103 mmol/L (98-108); Creatinine, Blood 0.76 mg/dL (0.40-1.00); Globulin, Blood 4.8 g/dL (2.2-4.0); Glomerular Filtration Rate >60 (60-); Glucose, Blood 88 mg/dL (70-99); Phosphorus, Blood 3.8 mg/dL (2.5-4.9); Potassium, Blood 3.8 mmol/L (3.5-5.5); Sodium, Blood 136 mmol/L (136-145); Total Protein, Blood 6.7 g/dL (6.4-8.2)
--- NOTE | 2021-03-13 14:25 | NUR ---
PT AWAKE AND CONVERSING APPROPRIATELY, DENIES PAIN, VSS-SPO2 93-94% 2L NC; REPORT GIVEN TO SUNIL BOND, ALL QUESTIONS ANSWERED.
--- NOTE | 2021-03-13 17:29 | NUR ---
SHIFT SUMMARY; PATIENT HAD SP PROCEDURE TODAY. (SP) TELLS LORETTA AT END OF PROCEDURE THAT SHE WILL NEED TO BE TRANSFERRED TO HIGHER LEVEL OF CARE FOR HEART PROCEDURE TO REMOVE VEGETATION ON TRICUSPID VALVE OF 1.5 CM X 2 LORETTA VERBALIZED UNDERSTANDING AND ASKS THAT HER BOYFRIEND COMES TO SEE HER PRIOR TO HER LEAVING. NURSING THERMOMETER TESTER ESTEVAN'S BOYFRIEND RADHA TO COME TO UNIT TO SEE LORETTA PRIOR TO HER LEAVING. NUMBER TO CALL REPORT AT 7PM IS [phone] [facility] RN
--- NOTE | 2021-03-13 19:11 | NUR ---
CALL TO SHAAN DE LOS SANTOS [phone] THIS RN GIVES REPORT TO AMOS BARBER WHO WILL ASSUME COMFORT AND CARE OF THIS PATIENT WHEN SHE ARRIVES. PATIENT LEFT [facility] 6PM TONIGHT [facility]. HEPARIN DRIP IN PLACE. RONDA ALVAREZ RN
--- NOTE | 2021-03-13 20:39 | NUR ---
REVIEWED INFORMATION AND ENTERED NAME OF RN AT [facility] THAT REPORT WAS CALLED TO FOR COBRA INFORMATION.
--- NOTE | 2021-03-14 03:51 | NUR ---
INFORMATION REVIEWED TO DOUBLE CHECK PT WAS COBRA TRANSFERRED TO ANOTHER HOSPITAL. [facility] TRANSFER UNIT WAS CALLING TO SEE IF TRANSFER THERE WAS STILL NEEDED. UPDATE GIVEN. PT WAS DISCHARGED ELSEWHERE.
[2021-04-02] MEDS ORDERED: DAPTOMYCIN500 M3 IV (15:03)
== END 2021-03-13 17:59 | disposition short-term general hospital (02) | DRG 871 ==
LOC: ER 20:16 → MEDS 23:52 → PCU 23:52 → MEDS 03-10 16:38
PROVIDERS: Family Medicine; Internal Medicine; Physician Assistant; ADMIT Internal Medicine
DX: A41.02 Sepsis due to Methicillin resistant Staphylococcus aureus (principal); I26.90 Septic pulmonary embolism without acute cor pulmonale; I33.0 Acute and subacute infective endocarditis; R65.20 Severe sepsis without septic shock; Z88.5 Allergy status to narcotic agent; I07.9 Rheumatic tricuspid valve disease, unspecified; Z79.899 Other long term (current) drug therapy; Z88.8 Allergy status to other drugs, medicaments and biological substances; E87.6 Hypokalemia; E88.09 Other disorders of plasma-protein metabolism, not elsewhere classified; Z71.51 Drug abuse counseling and surveillance of drug abuser; Z20.822 Contact with and (suspected) exposure to COVID-19; Z53.29 Procedure and treatment not carried out because of patient's decision for other reasons
CPT/HCPCS: 0241U; 36415; 36416; 71045; 71260; 74177; 80053; 80202; 81001; 82550; 83605; 83690; 83735; 83880; 84100; 84145; 84443; 85025; 85520; 85610; 85651; 85730; 86140; 87040; 87070; 87077; 87086; 87102; 87147; 87186; 87205; 93005; 93010; 93306; 93312; 93325; 96365; 96375; 99152; 99285-25; A9270; C1751; J0878; J1644; J1940; J2250; J2310; J2543; J3010; J3370; J3480; J7030; J7042; J7050; P9046; Q9967

== ENCOUNTER 2021-03-30 14:36 | Day surgery (SDC) | payer OTHER ==
[~2021-03-30 14:36] MED LIST changes: +BUPRENORPHIN-N1 EAC5 SL; +CLONAZEPAM1 MG
[2021-04-02] MEDS ORDERED: DAPTOMYCIN500 M3 IV (15:03)
== END 2021-03-30 17:00 | disposition home or self-care (01) ==
LOC: ATC 14:36
DX: I33.0 Acute and subacute infective endocarditis (principal); B95.62 Methicillin resistant Staphylococcus aureus infection as the cause of diseases classified elsewhere
CPT/HCPCS: 96365; J0878

== ENCOUNTER 2021-03-31 01:38 | Day surgery (SDC) | payer OTHER ==
[2021-04-02] MEDS ORDERED: DAPTOMYCIN500 M3 IV (15:03)
== END 2021-03-31 16:32 | disposition home or self-care (01) ==
LOC: ATC 01:38
DX: I33.0 Acute and subacute infective endocarditis (principal); B95.62 Methicillin resistant Staphylococcus aureus infection as the cause of diseases classified elsewhere
CPT/HCPCS: 96365; J0878

== ENCOUNTER 2021-04-01 02:49 | Day surgery (SDC) | payer OTHER ==
[2021-04-02] MEDS ORDERED: DAPTOMYCIN500 M3 IV (15:03)
== END 2021-04-01 16:06 | disposition home or self-care (01) ==
LOC: ATC 02:49
DX: I33.0 Acute and subacute infective endocarditis (principal); B95.62 Methicillin resistant Staphylococcus aureus infection as the cause of diseases classified elsewhere; Z88.5 Allergy status to narcotic agent; Z88.8 Allergy status to other drugs, medicaments and biological substances; Z87.891 Personal history of nicotine dependence
CPT/HCPCS: J0878

== ENCOUNTER 2021-04-03 00:27 | Day surgery (SDC) | payer OTHER ==
[~2021-04-03 00:27] MED LIST changes: +DAPTOMYCIN500 M3 IV
== END 2021-04-03 12:01 | disposition home or self-care (01) ==
LOC: ATC 00:27
DX: I33.0 Acute and subacute infective endocarditis (principal); B95.62 Methicillin resistant Staphylococcus aureus infection as the cause of diseases classified elsewhere; Z87.891 Personal history of nicotine dependence
CPT/HCPCS: 96365; J0878

== ENCOUNTER 2021-04-04 01:21 | Day surgery (SDC) | payer OTHER ==
[2021-04-04 15:56] LABS: International Normalized Ratio 1.1; Prothrombin Time Results 11.5 Sec (9.7-11.5)
== END 2021-04-04 15:44 | disposition home or self-care (01) ==
LOC: LAB 01:21 → ATC 01:21
PROVIDERS: Nurse Practitioner Family
DX: I33.0 Acute and subacute infective endocarditis (principal); B95.62 Methicillin resistant Staphylococcus aureus infection as the cause of diseases classified elsewhere; I44.2 Atrioventricular block, complete; Z87.891 Personal history of nicotine dependence; Z88.5 Allergy status to narcotic agent; Z88.8 Allergy status to other drugs, medicaments and biological substances
CPT/HCPCS: 85610; 96365; J0878

== ENCOUNTER 2021-04-05 03:33 | Day surgery (SDC) | payer OTHER ==
[2021-04-06] MEDS ORDERED: FUROSEMIDE20 MG PO (15:01)
[2021-04-06] MEDS ORDERED: WARF5 PO (15:01)
[2021-04-06] MEDS ORDERED: ECOTRIN325 MG PO (15:03)
[2021-04-06] MEDS ORDERED: SUBVENITE PO (15:03)
[2021-04-06] MEDS ORDERED: NEURONTIN300 MG PO (15:04)
[2021-04-06] MEDS ORDERED: JANTOVEN2.5 M2 PO (15:04)
[2021-04-06] MEDS ORDERED: Lamictal150 MG PO (15:05)
[2021-04-06] MEDS ORDERED: METOPROLOL SUCC25 MG PO (15:08)
[2021-04-06] MEDS ORDERED: [UNRECOGNIZED DRUG - CODE] PO (15:09)
[2021-04-06] MEDS ORDERED: LIDO700A20 TOP (15:09)
== END 2021-04-05 16:07 | disposition home or self-care (01) ==
LOC: ATC 03:33
DX: I33.0 Acute and subacute infective endocarditis (principal); B95.62 Methicillin resistant Staphylococcus aureus infection as the cause of diseases classified elsewhere
CPT/HCPCS: J0878

== ENCOUNTER 2021-04-06 00:10 | Day surgery (SDC) | payer OTHER ==
[2021-04-06] MEDS ORDERED: WARF5 PO (15:01)
[2021-04-06] MEDS ORDERED: FUROSEMIDE20 MG PO (15:01)
[2021-04-06] MEDS ORDERED: ECOTRIN325 MG PO (15:03)
[2021-04-06] MEDS ORDERED: SUBVENITE PO (15:03)
[2021-04-06] MEDS ORDERED: JANTOVEN2.5 M2 PO (15:04)
[2021-04-06] MEDS ORDERED: NEURONTIN300 MG PO (15:04)
[2021-04-06] MEDS ORDERED: Lamictal150 MG PO (15:05)
[2021-04-06] MEDS ORDERED: METOPROLOL SUCC25 MG PO (15:08)
[2021-04-06] MEDS ORDERED: LIDO700A20 TOP (15:09)
[2021-04-06] MEDS ORDERED: [UNRECOGNIZED DRUG - CODE] PO (15:09)
== END 2021-04-06 15:30 | disposition home or self-care (01) ==
LOC: ATC 00:10
DX: I07.9 Rheumatic tricuspid valve disease, unspecified (principal); B95.62 Methicillin resistant Staphylococcus aureus infection as the cause of diseases classified elsewhere
CPT/HCPCS: J0878

== ENCOUNTER 2021-04-08 02:37 | Day surgery (SDC) | payer OTHER ==
[~2021-04-08 02:37] MED LIST changes: +ECOTRIN325 MG PO; +FUROSEMIDE20 MG PO; +JANTOVEN2.5 M2 PO; +LIDO700A20 TOP; +Lamictal150 MG PO; +METOPROLOL SUCC25 MG PO; +NEURONTIN300 MG PO; +SUBVENITE PO; +WARF5 PO; +[UNRECOGNIZED DRUG - CODE] PO
== END 2021-04-08 14:25 | disposition home or self-care (01) ==
LOC: ATC 02:37
DX: I33.0 Acute and subacute infective endocarditis (principal); B95.62 Methicillin resistant Staphylococcus aureus infection as the cause of diseases classified elsewhere; Z88.5 Allergy status to narcotic agent; Z88.8 Allergy status to other drugs, medicaments and biological substances; F17.210 Nicotine dependence, cigarettes, uncomplicated
CPT/HCPCS: J0878

== ENCOUNTER 2021-04-09 01:29 | Day surgery (SDC) | payer OTHER | END 2021-04-09 11:55 | disposition home or self-care (01) | LOC: ATC 01:29 | DX: I33.0 Acute and subacute infective endocarditis (principal); B95.62 Methicillin resistant Staphylococcus aureus infection as the cause of diseases classified elsewhere | CPT/HCPCS: J0878 ==

== ENCOUNTER 2021-04-10 00:23 | Day surgery (SDC) | payer OTHER | END 2021-04-10 11:47 | disposition home or self-care (01) | LOC: ATC 00:23 | DX: I33.9 Acute and subacute endocarditis, unspecified (principal); B95.62 Methicillin resistant Staphylococcus aureus infection as the cause of diseases classified elsewhere | CPT/HCPCS: J0878 ==

== ENCOUNTER 2021-04-11 03:19 | Day surgery (SDC) | payer OTHER ==
[2021-04-11 15:46] LABS: International Normalized Ratio 1.44; Prothrombin Time Results 14.8 Sec (9.7-11.5)
== END 2021-04-11 15:59 | disposition home or self-care (01) ==
LOC: ATC 03:19
PROVIDERS: Nurse Practitioner Family
DX: I33.0 Acute and subacute infective endocarditis (principal); B95.62 Methicillin resistant Staphylococcus aureus infection as the cause of diseases classified elsewhere
CPT/HCPCS: 85610; J0878

== ENCOUNTER 2021-04-12 00:22 | Day surgery (SDC) | payer OTHER | END 2021-04-12 09:21 | disposition home or self-care (01) | LOC: ATC 00:22 | DX: I33.0 Acute and subacute infective endocarditis (principal); B95.62 Methicillin resistant Staphylococcus aureus infection as the cause of diseases classified elsewhere | CPT/HCPCS: J0878 ==

== ENCOUNTER 2021-04-13 01:16 | Day surgery (SDC) | payer OTHER | END 2021-04-13 16:14 | disposition home or self-care (01) | LOC: ATC 01:16 | DX: I33.0 Acute and subacute infective endocarditis (principal); B95.62 Methicillin resistant Staphylococcus aureus infection as the cause of diseases classified elsewhere | CPT/HCPCS: J0878 ==

== ENCOUNTER 2021-04-15 00:11 | Day surgery (SDC) | payer OTHER | END 2021-04-15 15:20 | disposition home or self-care (01) | LOC: ATC 00:11 | DX: I33.0 Acute and subacute infective endocarditis (principal); B95.62 Methicillin resistant Staphylococcus aureus infection as the cause of diseases classified elsewhere; Z88.5 Allergy status to narcotic agent; Z88.8 Allergy status to other drugs, medicaments and biological substances | CPT/HCPCS: J0878 ==

== ENCOUNTER 2021-04-16 01:46 | Day surgery (SDC) | payer OTHER | END 2021-04-16 12:30 | disposition home or self-care (01) | LOC: ATC 01:46 | DX: I33.0 Acute and subacute infective endocarditis (principal); B95.62 Methicillin resistant Staphylococcus aureus infection as the cause of diseases classified elsewhere | CPT/HCPCS: J0878 ==

== ENCOUNTER 2021-04-17 00:45 | Day surgery (SDC) | payer OTHER | END 2021-04-17 11:08 | disposition home or self-care (01) | LOC: ATC 00:45 | DX: I33.0 Acute and subacute infective endocarditis (principal); B95.62 Methicillin resistant Staphylococcus aureus infection as the cause of diseases classified elsewhere; Z87.891 Personal history of nicotine dependence; Z88.5 Allergy status to narcotic agent; Z88.8 Allergy status to other drugs, medicaments and biological substances | CPT/HCPCS: J0878 ==

== ENCOUNTER 2021-04-18 06:00 | Day surgery (SDC) | payer OTHER | END 2021-04-18 16:10 | disposition home or self-care (01) | LOC: ATC 06:00 | DX: I33.0 Acute and subacute infective endocarditis (principal); B95.61 Methicillin susceptible Staphylococcus aureus infection as the cause of diseases classified elsewhere; Z88.5 Allergy status to narcotic agent; Z88.8 Allergy status to other drugs, medicaments and biological substances; Z87.891 Personal history of nicotine dependence | CPT/HCPCS: J0878 ==

== ENCOUNTER 2021-04-19 05:31 | Day surgery (SDC) | payer OTHER | END 2021-04-19 23:52 | disposition home or self-care (01) | LOC: ATC 05:31 | DX: I33.0 Acute and subacute infective endocarditis (principal); B95.62 Methicillin resistant Staphylococcus aureus infection as the cause of diseases classified elsewhere | CPT/HCPCS: J0878 ==

== ENCOUNTER 2021-04-21 00:17 | Day surgery (SDC) | payer OTHER | END 2021-04-21 16:11 | disposition home or self-care (01) | LOC: ATC 00:17 | DX: I33.0 Acute and subacute infective endocarditis (principal); B95.62 Methicillin resistant Staphylococcus aureus infection as the cause of diseases classified elsewhere | CPT/HCPCS: 96365; J0878 ==

== ENCOUNTER 2021-04-22 00:48 | Day surgery (SDC) | payer OTHER | END 2021-04-22 15:32 | disposition home or self-care (01) | LOC: ATC 00:48 | DX: I33.0 Acute and subacute infective endocarditis (principal); B95.62 Methicillin resistant Staphylococcus aureus infection as the cause of diseases classified elsewhere; Z88.5 Allergy status to narcotic agent; Z88.8 Allergy status to other drugs, medicaments and biological substances; Z87.891 Personal history of nicotine dependence | CPT/HCPCS: J0878 ==

== ENCOUNTER 2021-04-23 10:38 | Day surgery (SDC) | payer OTHER | END 2021-04-23 11:28 | disposition home or self-care (01) | LOC: ATC 10:38 | DX: I33.0 Acute and subacute infective endocarditis (principal); B95.62 Methicillin resistant Staphylococcus aureus infection as the cause of diseases classified elsewhere | CPT/HCPCS: J0878 ==

== ENCOUNTER 2021-04-24 11:27 | Day surgery (SDC) | payer OTHER ==
[~2021-04-24 11:27] MED LIST changes: -CLONAZEPAM1 MG; +CLONAZEPAM1 MG PO
--- NOTE | 2021-04-24 15:17 | NUR ---
PT CAME IN 1 HOUR LATE, THIS RN WAS ON LUNCH WHEN CALLED THAT PT WAS HERE. PT ARRIVED WITH AMBAR RADHA, APPEARS DISHOLVED AND ANXIOUS, PT STATES THAT SHE WOKE UP LATE AND SHE WAS SORRY. COULD NOT ADVANCE IV IN NORMAL SPOT THAT THIS RN STARTS IV. THIS RN ATTEMPTED 8 STICKS. PT STATES "I AM SO DEHYDRATED" PT TO COME BACK AT 1530 AFTER SHE STATES SHE WILL GO HOME AND COME BACK HYDRATED.
--- NOTE | 2021-04-24 16:09 | NUR ---
PT ARRIVED AGAIN, STATING SHE HAS DRANK AT LEAST 32 OZ OF WATER, VERY TEARFUL, DOWN AFFECT. ATTEMPTED ANOTHER 3 IV STICKS, HAVE WARM BLANKETS ON PT AND MARILEE BARBER IS GOING TO ATTEMPT
--- NOTE | 2021-04-24 16:36 | NUR ---
WARMED PT WITH WARM BLANKETS FOR 10 MIN, THIS RN FINALLY GOT IV ON RIGHT WRIST
[2021-04-25] MEDS ORDERED: VRAYLAR1.5 MG PO (15:32)
== END 2021-04-24 17:05 | disposition home or self-care (01) ==
LOC: ATC 11:27
DX: I33.0 Acute and subacute infective endocarditis (principal); B95.62 Methicillin resistant Staphylococcus aureus infection as the cause of diseases classified elsewhere
CPT/HCPCS: J0878

== ENCOUNTER 2021-04-25 02:09 | Day surgery (SDC) | payer OTHER ==
[2021-04-25] MEDS ORDERED: VRAYLAR1.5 MG PO (15:32)
== END 2021-04-25 15:35 | disposition home or self-care (01) ==
LOC: ATC 02:09
DX: I33.0 Acute and subacute infective endocarditis (principal); B95.62 Methicillin resistant Staphylococcus aureus infection as the cause of diseases classified elsewhere; I44.2 Atrioventricular block, complete; F15.10 Other stimulant abuse, uncomplicated; Z95.2 Presence of prosthetic heart valve; Z88.5 Allergy status to narcotic agent; Z88.8 Allergy status to other drugs, medicaments and biological substances; Z87.891 Personal history of nicotine dependence
CPT/HCPCS: J0878

== ENCOUNTER 2021-04-26 04:47 | Day surgery (SDC) | payer OTHER ==
[~2021-04-26 04:47] MED LIST changes: +VRAYLAR1.5 MG PO
== END 2021-04-26 15:53 | disposition home or self-care (01) ==
LOC: ATC 04:47
DX: I33.0 Acute and subacute infective endocarditis (principal); B95.62 Methicillin resistant Staphylococcus aureus infection as the cause of diseases classified elsewhere
CPT/HCPCS: 96365; J0878

== ENCOUNTER 2021-04-27 01:17 | Day surgery (SDC) | payer OTHER ==
[2021-04-27 16:15] LABS: Hematocrit 38.8 % (33.0-51.0); Hemoglobin 12.1 g/dL (11.5-16.0); Mean Corpuscular HGB 27.9 pg (26.0-34.0); Mean Corpuscular HGB Conc 31.2 g/dL (31.5-36.5); Mean Corpuscular Volume 90 fL (80-100); Mean Platelet Volume 8.5 fL (9.1-12.4); Platelet Count 300 K/mm3 (150-400); RDW Coefficient Variation 15.3 % (11.7-14.2); RDW Standard Deviation 51.1 fL (35.1-46.3); Red Blood Cell Count 4.33 M/mm3 (3.80-5.20); White Blood Cell Count 7.79 K/mm3 (4.00-11.30)
[2021-04-27 16:39] LABS: C-REACTIVE PROTEIN, EXT RANGE <0.290 mg/dL (0.000-0.300)
[2021-04-27 16:41] LABS: Anion Gap 6 mmol/L (6-16); Blood Urea Nitrogen 14 mg/dL (8-24); CO2, Blood 26 mmol/L (21-32); Calcium, Blood 9.1 mg/dL (8.5-10.1); Chloride, Blood 107 mmol/L (98-108); Creatinine, Blood 0.61 mg/dL (0.40-1.00); Glomerular Filtration Rate >60 (60-); Glucose, Blood 101 mg/dL (70-99); Potassium, Blood 4.3 mmol/L (3.5-5.5); Sodium, Blood 139 mmol/L (136-145)
[2021-04-27 16:43] LABS: International Normalized Ratio 1.24; Prothrombin Time Results 12.8 Sec (9.7-11.5)
[2021-04-27 16:44] LABS: CPK Creatine Kinase 37 U/L (26-193); Creatine Kinase MB 1.2 ng/mL (0.0-3.6); Creatine Kinase MB Index 3.2 (0.0-4.0)
[2021-04-27 16:46] LABS: BASOPHILS ABSOLUTE MAN 0.07 K/mm3 (0.00-0.23); BASOPHILS PERCENT MAN 1 % (0-2); EOSINOPHILS ABSOLUTE MAN 0.38 K/mm3 (0.00-0.68); EOSINOPHILS PERCENT MAN 5 % (0-6); LYMPHOCYTES ABSOLUTE MAN 4.28 K/mm3 (0.84-5.20); LYMPHOCYTES PERCENT MAN 55 % (21-46); MONOCYTES ABSOLUTE MAN 0.62 K/mm3 (0.16-1.47); MONOCYTES PERCENT MAN 8 % (4-13); NEUTROPHILS ABSOLUTE MAN 2.41 K/mm3 (1.96-9.15); SEG NEUTROPHILS PERCENT MAN 31 % (41-73); TOTAL CELLS COUNTED 100
== END 2021-04-27 16:45 | disposition home or self-care (01) ==
LOC: ATC 01:17
PROVIDERS: Internal Medicine; Nurse Practitioner Family
DX: I33.0 Acute and subacute infective endocarditis (principal); B95.62 Methicillin resistant Staphylococcus aureus infection as the cause of diseases classified elsewhere
CPT/HCPCS: 80048; 82550; 82553; 85025; 85610; 86140; 96365; J0878

== ENCOUNTER 2021-04-28 01:13 | Day surgery (SDC) | payer OTHER | END 2021-04-28 15:33 | disposition home or self-care (01) | LOC: ATC 01:13 | DX: I33.0 Acute and subacute infective endocarditis (principal); B95.62 Methicillin resistant Staphylococcus aureus infection as the cause of diseases classified elsewhere | CPT/HCPCS: 96365; J0878 ==

== ENCOUNTER 2021-04-29 02:45 | Day surgery (SDC) | payer OTHER | END 2021-04-29 15:27 | disposition home or self-care (01) | LOC: ATC 02:45 | DX: I33.0 Acute and subacute infective endocarditis (principal); B95.62 Methicillin resistant Staphylococcus aureus infection as the cause of diseases classified elsewhere; Z88.5 Allergy status to narcotic agent; Z88.8 Allergy status to other drugs, medicaments and biological substances | CPT/HCPCS: 96365; J0878 ==

== ENCOUNTER 2021-04-30 14:06 | Day surgery (SDC) | payer OTHER | END 2021-04-30 14:38 | disposition home or self-care (01) | LOC: ATC 14:06 | DX: I33.0 Acute and subacute infective endocarditis (principal); B95.62 Methicillin resistant Staphylococcus aureus infection as the cause of diseases classified elsewhere | CPT/HCPCS: 96365; J0878 ==

== ENCOUNTER 2024-06-20 20:44 | Emergency (ER) | payer OTHER ==
[~2024-06-20] VITALS: Ht 165.1 cm; Wt 65.8 kg
[2024-06-20 22:39] LABS: BASOPHILS ABSOLUTE AUTO 0.05 K/mm3 (0.00-0.23); BASOPHILS PERCENT AUTO 0 % (0-2); EOSINOPHILS ABSOLUTE AUTO 0.31 K/mm3 (0.00-0.68); EOSINOPHILS PERCENT AUTO 2 % (0-6); Hematocrit 30.5 % (33.0-51.0); Hemoglobin 10.2 g/dL (11.5-16.0); IMMATURE GRAN ABSOLUTE AUTO 0.04 K/mm3 (0.00-0.10); IMMATURE GRAN PERCENT AUTO 0 % (0-1); LYMPHOCYTES ABSOLUTE AUTO 4.62 K/mm3 (0.84-5.20); LYMPHOCYTES PERCENT AUTO 34 % (21-46); MONOCYTES ABSOLUTE AUTO 1.22 K/mm3 (0.16-1.47); MONOCYTES PERCENT AUTO 9 % (4-13); Mean Corpuscular HGB Conc 33.4 g/dL (31.5-36.5); Mean Corpuscular Volume 90 fL (80-100); Mean Platelet Volume 8.9 fL (9.1-12.4); NEUTROPHILS ABSOLUTE AUTO 7.22 K/mm3 (1.96-9.15); NEUTROPHILS PERCENT AUTO 54 % (41-73); Platelet Count 412 K/mm3 (150-400); RDW Coefficient Variation 14.6 % (11.7-14.2); RDW Standard Deviation 44.5 fL (35.1-46.3); White Blood Cell Count 13.46 K/mm3 (4.00-11.30)
[2024-06-20 23:01] LABS: Albumin, Blood 3.1 g/dL (3.4-5.0); Albumin/Globulin Ratio 0.9 (0.8-1.8); Bilirubin, Total 0.7 mg/dL (0.1-1.0); Bun/Creatinine Ratio 13.1 (12.0-20.0); Calcium, Blood 8.5 mg/dL (8.5-10.1); Creatinine, Blood 0.84 mg/dL (0.40-1.00); Globulin, Blood 3.4 g/dL (2.2-4.0); Potassium, Blood 3.1 mmol/L (3.5-5.5); Total Protein, Blood 6.5 g/dL (6.4-8.2)
[2024-06-21 00:01] LABS: Source, Urine Clean Catch
[2024-06-21 00:09] LABS: Bilirubin, Urine Neg (Neg); Blood, Urine 1+ (Neg); Glucose Qualitative, Urine Neg (Neg); Ketones, Urine Neg (Neg); Leukocyte Esterase, Urine 3+ (Neg); Nitrite, Urine Neg (Neg); Protein, Urine 4+ (Neg); Specific Gravity, Urine 1.025 (1.003-1.022); Urobilinogen, Urine 1+ (Normal)
[2024-06-21 00:15] VITALS: BP 162/102
[2024-06-21 00:15] LABS: Appearance, Urine Hazy (Clear); Color, Urine Yellow (P-Yellow)
[2024-06-21 00:25] LABS: Amorphous Light (0-Heavy); Bacteria Mod /hpf; Red Blood Cells, Urine 0-2 /hpf (0-2); Squamous Epithelial Cells Few /hpf (Few)
[2024-06-21] MEDS ORDERED: Protonix40 MG PO (01:08)
[2024-06-21] MEDS ORDERED: Mag Hydrox/AL Hydrox/Simeth 30 ML UDC PO ONE (01:10)
[2024-06-21] MEDS ORDERED: Pantoprazole Sodium 40 MG Tab PO ONE (01:10)
== END 2024-06-21 02:11 | disposition home or self-care (01) ==
LOC: ER 20:44
PROVIDERS: Student in an Organized Health Care Education/Training Program
DX: K29.70 Gastritis, unspecified, without bleeding (principal); F11.90 Opioid use, unspecified, uncomplicated; F17.210 Nicotine dependence, cigarettes, uncomplicated; Z79.01 Long term (current) use of anticoagulants; Z79.82 Long term (current) use of aspirin; Z79.899 Other long term (current) drug therapy; Z88.5 Allergy status to narcotic agent
CPT/HCPCS: 76705; 80053; 81001; 83690; 84703; 85025; 87086; 99284-25; A9270

== ENCOUNTER 2024-06-29 17:20 | Inpatient (IN) | payer OTHER ==
[~2024-06-29] VITALS: Ht 165.1 cm; Wt 69.3 kg
[~2024-06-29 17:20] MED LIST changes: +Protonix40 MG PO
[2024-06-29 18:25] LABS: BASOPHILS ABSOLUTE AUTO 0.02 K/mm3 (0.00-0.23); BASOPHILS PERCENT AUTO 0 % (0-2); EOSINOPHILS ABSOLUTE AUTO 0.04 K/mm3 (0.00-0.68); EOSINOPHILS PERCENT AUTO 1 % (0-6); Hematocrit 20.7 % (33.0-51.0); Hemoglobin 6.4 g/dL (11.5-16.0); IMMATURE GRAN ABSOLUTE AUTO 0.02 K/mm3 (0.00-0.10); IMMATURE GRAN PERCENT AUTO 0 % (0-1); LYMPHOCYTES ABSOLUTE AUTO 2.49 K/mm3 (0.84-5.20); LYMPHOCYTES PERCENT AUTO 32 % (21-46); MONOCYTES PERCENT AUTO 8 % (4-13); Mean Corpuscular HGB 29.5 pg (26.0-34.0); Mean Corpuscular HGB Conc 30.9 g/dL (31.5-36.5); Mean Corpuscular Volume 95 fL (80-100); Mean Platelet Volume 9.6 fL (9.1-12.4); NEUTROPHILS ABSOLUTE AUTO 4.71 K/mm3 (1.96-9.15); NEUTROPHILS PERCENT AUTO 60 % (41-73); NRBC ABSOLUTE 0.02 K/mm3 (0.00-0.02); NRBC Auto 0.3 /100 WBC (0.0-0.2); Platelet Count 298 K/mm3 (150-400); RDW Standard Deviation 55.3 fL (35.1-46.3); Red Blood Cell Count 2.17 M/mm3 (3.80-5.20); White Blood Cell Count 7.88 K/mm3 (4.00-11.30)
[2024-06-29 18:41] LABS: International Normalized Ratio 1.34
[2024-06-29 18:42] LABS: Albumin, Blood 2.9 g/dL (3.4-5.0); Albumin/Globulin Ratio 0.9 (0.8-1.8); Bilirubin, Total 0.9 mg/dL (0.1-1.0); Bun/Creatinine Ratio 16.3 (12.0-20.0); Calcium, Blood 8.3 mg/dL (8.5-10.1); Creatinine, Blood 0.86 mg/dL (0.40-1.00); Globulin, Blood 3.3 g/dL (2.2-4.0); Potassium, Blood 4.2 mmol/L (3.5-5.5); Total Protein, Blood 6.2 g/dL (6.4-8.2)
[2024-06-29] MEDS ORDERED: Pantoprazole Sodium 40 MG Injection IV ONE (20:30)
[2024-06-29 21:33] LABS: Source, Urine Clean Catch
[2024-06-29 21:36] LABS: Bilirubin, Urine Neg (Neg); Blood, Urine Neg (Neg); Glucose Qualitative, Urine Neg (Neg); Ketones, Urine Neg (Neg); Leukocyte Esterase, Urine 3+ (Neg); Nitrite, Urine Neg (Neg); Protein, Urine 3+ (Neg); Urobilinogen, Urine NORM (Normal)
[2024-06-29] MEDS ORDERED: NS 1,000 ML IV ONE (21:39)
[2024-06-29 21:41] LABS: Appearance, Urine Clear (Clear); Color, Urine Yellow (P-Yellow)
[2024-06-29 21:42] LABS: Bacteria Few /hpf; Red Blood Cells, Urine Not Seen /hpf (0-2); Squamous Epithelial Cells Rare /hpf (Few)
[2024-06-29 21:57] LABS: U Amphetamine Screen DETECTED; U Barbituate Screen Not Detected; U Benzodiazapine Screen Not Detected; U Buprenorphine Screen Not Detected; U Cannabinoids Screen Not Detected; U Cocaine Screen Not Detected; U Methadone Screen Not Detected; U Methamphetamine Screen DETECTED; U Opiates Screen Not Detected; U Oxycodone Screen Not Detected; U Phencyclidine Screen Not Detected
[2024-06-29] MEDS ORDERED: Ondansetron HCl 2 MG / ML 2ML Vial IV PRN (23:45)
[2024-06-30] VITALS (9 sets, daily range): BP systolic 112–152; BP diastolic 64–94
[2024-06-30] MEDS ORDERED: Pantoprazole Sodium 40 MG in NS 50 ML IV SCH (00:10)
[2024-06-30] MEDS ORDERED: NS 1,000 ML IV ONE (00:24)
[2024-06-30 00:31] LABS: Hematocrit 20.4 % (33.0-51.0); Hemoglobin 6.6 g/dL (11.5-16.0)
[2024-06-30] MEDS ORDERED: CefTRIAXone Sodium 1,000 MG in NS 100 ML IV SCH (03:09)
[2024-06-30] MEDS ORDERED: NS 250 ML IV PRN (03:20)
[2024-06-30 04:40] LABS: BASOPHILS ABSOLUTE AUTO 0.03 K/mm3 (0.00-0.23); BASOPHILS PERCENT AUTO 1 % (0-2); EOSINOPHILS ABSOLUTE AUTO 0.11 K/mm3 (0.00-0.68); EOSINOPHILS PERCENT AUTO 2 % (0-6); Hematocrit 24.7 % (33.0-51.0); Hemoglobin 8.1 g/dL (11.5-16.0); IMMATURE GRAN ABSOLUTE AUTO 0.02 K/mm3 (0.00-0.10); IMMATURE GRAN PERCENT AUTO 0 % (0-1); LYMPHOCYTES ABSOLUTE AUTO 2.59 K/mm3 (0.84-5.20); LYMPHOCYTES PERCENT AUTO 40 % (21-46); MONOCYTES ABSOLUTE AUTO 0.67 K/mm3 (0.16-1.47); MONOCYTES PERCENT AUTO 10 % (4-13); Mean Corpuscular HGB 28.8 pg (26.0-34.0); Mean Corpuscular HGB Conc 32.8 g/dL (31.5-36.5); Mean Platelet Volume 9.3 fL (9.1-12.4); NEUTROPHILS ABSOLUTE AUTO 3.01 K/mm3 (1.96-9.15); NEUTROPHILS PERCENT AUTO 47 % (41-73); NRBC ABSOLUTE 0.02 K/mm3 (0.00-0.02); NRBC Auto 0.3 /100 WBC (0.0-0.2); Platelet Count 237 K/mm3 (150-400); RDW Coefficient Variation 17.6 % (11.7-14.2); RDW Standard Deviation 56.2 fL (35.1-46.3); Red Blood Cell Count 2.81 M/mm3 (3.80-5.20); White Blood Cell Count 6.43 K/mm3 (4.00-11.30)
[2024-06-30 04:42] LABS: Mean Corpuscular Volume 88 fL (80-100)
[2024-06-30 04:58] LABS: Albumin, Blood 2.6 g/dL (3.4-5.0); Albumin/Globulin Ratio 0.9 (0.8-1.8); Bilirubin, Total 2.2 mg/dL (0.1-1.0); Bun/Creatinine Ratio 14.6 (12.0-20.0); Creatinine, Blood 0.76 mg/dL (0.40-1.00); Globulin, Blood 2.9 g/dL (2.2-4.0); Potassium, Blood 3.8 mmol/L (3.5-5.5); Total Protein, Blood 5.5 g/dL (6.4-8.2)
[2024-06-30] MEDS ORDERED: Gabapentin 300 MG Cap PO PRN (06:25)
--- NOTE | 2024-06-30 07:40 | NUR ---
SHIFT SUMMARY: PT ARRIVES TO PCU 15 FROM THE ER AROUND 0120 VIA GURNEY. PT IS ABLE TO TRANSFER HERSELF TO THE HOSPITAL BED, SBA. PT ARRIVES TO THE UNIT WITH PRBC TRANSFUSING. PT IS ORIENTED TO ROOM AND CALL LIGHT. PT IS A&OX4, ANXIOUS BUT COOPERATIVE WITH CARE. VSS ON RA. PACED 70'S-90'S, PT IS UNAWARE OF THE MAKE OR MODEL OR WHAT THE SETTINGS ARE. PT SMOKES FENTANYL AND METH, LAST USE WAS THE MORNING OF June. C/O PAIN EVERYWHERE. PT IS NPO. VOIDING ADEQUATE AMOUNTS OF CLEAR YELLOW URINE. NO BM THIS SHIFT. PT HAS NOT HAD ANY N/V/D SINCE ARRIVING TO FLOOR. PT STATES SHE HAS BEEN UNHOUSED FOR LAST 5 YEARS. PT'S COW SCORE WAS 18, MODERATE OPIOD WITHDRAWAL. BED IN LOWEST POSITION, CALL LIGHT WITHIN REACH. BED ALARM SET FOR PT'S SAFETY.
[2024-06-30 08:27] LABS: Hematocrit 28.1 % (33.0-51.0); Hemoglobin 9.1 g/dL (11.5-16.0)
[2024-06-30] MEDS ORDERED: Metoprolol Succinate 25 MG TABCR PO SCH (09:00)
[2024-06-30] MEDS ORDERED: Furosemide 20 MG Tab PO SCH (09:00)
[2024-06-30] MEDS ORDERED: Lactated Ringer's 1,000 ML IV SCH (13:00)
--- NOTE | 2024-06-30 13:23 | NUR ---
RFA IV SITE PATENT. IVF'S STARTED FOR EGD PROCEDURE.
[2024-06-30] MEDS ORDERED: Lidocaine HCl 2% 10 ML SDA ONE (13:34)
[2024-06-30] MEDS ORDERED: propofoL 40 ML IV ONE (13:34)
[2024-06-30] MEDS ORDERED: propofoL 20 ML IV ONE (13:56)
--- NOTE | 2024-06-30 13:56 | NUR ---
06/30/24 1356 Laurence Corona [facility] CASE WITH DR. SCHUSTER; SEE ANESTHESIA RECORDS.
[2024-06-30] MEDS ORDERED: Vancomycin HCL 1,750 MG in NS 500 ML IV ONE (14:15)
[2024-06-30] MEDS ORDERED: Cefepime HCl 2,000 MG in NS 100 ML IV SCH (16:00)
[2024-06-30] MEDS ORDERED: Sucralfate 1000MG / 10ML UD BTL PO SCH (16:45)
[2024-06-30 17:47] LABS: Hematocrit 28.7 % (33.0-51.0); Hemoglobin 9.3 g/dL (11.5-16.0)
--- NOTE | 2024-06-30 17:57 | NUR ---
SHIFT SUMMARY: PT A&OX4. FOLLOWS COMMANDS AND MAKES NEEDS KNOWN TO STAFF. PT WAS ANXIOUS OFF AN ON THROUGHOUT SHIFT, MOSTLY AFTER HEARING RESULTS FROM ECHO. PT COOPERATIVE WITH CARE. ECHO WAS COMPLETED AND VEGITATION WAS FOUND ON HER TRICUSPID VALVE AND POSSIBLE ON HER PACEMAKER CORD. BLOOD CULTURES WERE COLLECTED AND ABX WERE STARTED. PT ALSO RECIEVED ENDOSCOPY TODAY WHERE A ULCER WAS FOUND. PT TOLERATING CLEAR LIQUIDS. HAD ONE EPISODE OF BLOODY STOOL THIS EARLY AFTERNOON. NO VOMITING. REPORTS BODY ACHES POSSIBLE FROM FENTANYL AND METH WITHDRAWL. VSS. HER PACEMAKER WAS INTERROGATED THIS AM. 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 PROVIDER AWARE. NO OTHER SIGNIFICANT EVENTS HAPPENED DURING THIS SHIFT. WILL CONTINUE TO CARE FOR PT TILL END OF SHIFT.
[2024-06-30 22:58] LABS: Hematocrit 28.5 % (33.0-51.0); Hemoglobin 9.3 g/dL (11.5-16.0)
[2024-07-01 00:36] VITALS: BP 117/69
[2024-07-01] MEDS ORDERED: Vancomycin HCL 1,000 MG in NS 250 ML IV SCH ×3 (03:00→21:00)
[2024-07-01 04:43] VITALS: BP 116/77
[2024-07-01] MEDS ORDERED: Pantoprazole Sodium 40 MG Injection IV SCH (06:00)
[2024-07-01 06:31] LABS: BASOPHILS ABSOLUTE AUTO 0.04 K/mm3 (0.00-0.23); BASOPHILS PERCENT AUTO 0 % (0-2); EOSINOPHILS ABSOLUTE AUTO 0.12 K/mm3 (0.00-0.68); EOSINOPHILS PERCENT AUTO 1 % (0-6); Hematocrit 28.8 % (33.0-51.0); Hemoglobin 9.2 g/dL (11.5-16.0); IMMATURE GRAN ABSOLUTE AUTO 0.03 K/mm3 (0.00-0.10); IMMATURE GRAN PERCENT AUTO 0 % (0-1); LYMPHOCYTES PERCENT AUTO 35 % (21-46); MONOCYTES ABSOLUTE AUTO 0.72 K/mm3 (0.16-1.47); MONOCYTES PERCENT AUTO 8 % (4-13); Mean Corpuscular HGB 28.2 pg (26.0-34.0); Mean Corpuscular HGB Conc 31.9 g/dL (31.5-36.5); Mean Corpuscular Volume 88 fL (80-100); Mean Platelet Volume 9.2 fL (9.1-12.4); NEUTROPHILS ABSOLUTE AUTO 5.15 K/mm3 (1.96-9.15); NEUTROPHILS PERCENT AUTO 55 % (41-73); Platelet Count 306 K/mm3 (150-400); RDW Standard Deviation 57.2 fL (35.1-46.3); Red Blood Cell Count 3.26 M/mm3 (3.80-5.20); White Blood Cell Count 9.36 K/mm3 (4.00-11.30)
--- NOTE | 2024-07-01 06:51 | NUR ---
SHIFT SUMMARY: PT IS A&OX4, COOPERATIVE WITH CARE. VSS ON RA. PACED 70'S-90'S. C/O PAIN EVERYWHERE, MEDICATED WITH PRN 300MG GABAPENTIN. TOLERATING A CLEAR LIQUID DIET, AND CONSUMING A LARGE AMOUNT OF FLUIDS. PT IS INDEPENDENT IN THE ROOM, CALLS APPROPRIATELY FOR NEEDS. VOIDING ADEQUATE AMOUNTS OF CLEAR YELLOW URINE. NO BM THIS SHIFT. NO SIGNS OF BLEEDING. BED IN LOWEST POSITION, CALL LIGHT WITHIN REACH. CALLS APPROPRIATELY AND IS ABLE TO ADVOCATE NEEDS EFFECTIVELY.
[2024-07-01 07:07] LABS: Albumin, Blood 2.5 g/dL (3.4-5.0); Albumin/Globulin Ratio 0.8 (0.8-1.8); Bilirubin, Total 0.9 mg/dL (0.1-1.0); Bun/Creatinine Ratio 10.3 (12.0-20.0); Calcium, Blood 7.9 mg/dL (8.5-10.1); Creatinine, Blood 0.78 mg/dL (0.40-1.00); Globulin, Blood 3.2 g/dL (2.2-4.0); Potassium, Blood 3.3 mmol/L (3.5-5.5); Total Protein, Blood 5.7 g/dL (6.4-8.2)
[2024-07-01 07:46] VITALS: BP 123/77
[2024-07-01] MEDS ORDERED: Lactobacil 2-S.Thermo-Bifido 1 1 Cap PO SCH (09:00)
[2024-07-01] MEDS ORDERED: Potassium Chl 20MEQ/Water100ML 100 ML IV STA (09:02)
[2024-07-01 11:48] VITALS: BP 126/77
[2024-07-01] MEDS ORDERED: Heparin Sodium,Porcine/0.5 NS 500 ML IV SCH (15:20)
[2024-07-01 15:31] LABS: Hematocrit 29.8 % (33.0-51.0); Hemoglobin 9.6 g/dL (11.5-16.0)
[2024-07-01 16:21] VITALS: BP 121/74
--- NOTE | 2024-07-01 18:09 | NUR ---
PT SUMMARY; NO ACUTE CHANGE FOR THE SHIFT PT HAS BEEN PLEASANT AND COOPERATIVE WITH CARES. VITALS HAS BEEN STABLE. PT ABLE TO MAKE NEEDS KNOWN AND CALLS APPROPRIATELY. SBA TO THE BATHROOM. PT DIET DVANCED TO EHART HEALTHY DIET, PT TOLERATING WELL. NO REPORTED BLOODY STOOL/EMESIS. PT CONTINUES TO RECEIVE IV ABO. THIRD SET OF BLOOD CULTURES ORDERED AWAITING FOR RESULTS. HEP GTT STARTED AT 12U/KG/HR. NO OTHER ISSUES REPORTED FOR THE SHIFT. PT NOW RESTING IN BED CALL LIGHTS IN REACH WILL REPORT TO ONCOMING SHIFT
[2024-07-01 19:17] LABS: Vancomycin, Trough 20.1 ug/mL (5.0-10.0)
[2024-07-01 21:04] VITALS: BP 135/85
[2024-07-01 22:12] LABS: Hematocrit 28.3 % (33.0-51.0); Mean Corpuscular HGB 28.1 pg (26.0-34.0); Mean Corpuscular HGB Conc 31.8 g/dL (31.5-36.5); Mean Corpuscular Volume 88 fL (80-100); Mean Platelet Volume 9.2 fL (9.1-12.4); Platelet Count 293 K/mm3 (150-400); RDW Coefficient Variation 17.6 % (11.7-14.2); RDW Standard Deviation 56.4 fL (35.1-46.3)
[2024-07-01] MEDS ORDERED: Dose Adjust by Pharmacy XX STA (22:43)
[2024-07-02] VITALS (7 sets, daily range): BP systolic 131–142; BP diastolic 85–101
[2024-07-02] MEDS ORDERED: LORazepam 2 MG/ML 1ML Injection IV ONE (04:20)
[2024-07-02 04:49] LABS: Hematocrit 30.6 % (33.0-51.0); Hemoglobin 9.6 g/dL (11.5-16.0); Mean Platelet Volume 9.1 fL (9.1-12.4); Platelet Count 282 K/mm3 (150-400)
[2024-07-02] MEDS ORDERED: Clarify Drug Order XX ONE ×2 (06:50→12:25)
--- NOTE | 2024-07-02 06:53 | NUR ---
SHIFT SUMMARY: PT IS A&OX4, COOPERATIVE WITH CARE. VSS ON RA. V- PACED 70'S-90'S. C/O PAIN EVERYWHERE, RESTLESS AND UNABLE TO GET COMFORTABLE. CALLED THE RESIDENT AND GOT A ONE TIME DOSE OF 0.5 MG IV ATIVAN. HEPARIN GTT INFUSING AND TITRATED PER ORDER. TOLERATING A HEART HEALTHY DIET, AND CONSUMING A LARGE AMOUNT OF FLUIDS. PT IS INDEPENDENT IN THE ROOM, CALLS APPROPRIATELY FOR NEEDS. VOIDING ADEQUATE AMOUNTS OF CLOUDY, YELLOW URINE. NO BM THIS SHIFT. NO SIGNS OF BLEEDING. BED IN LOWEST POSITION, CALL LIGHT WITHIN REACH. CALLS APPROPRIATELY AND IS ABLE TO ADVOCATE NEEDS EFFECTIVELY.
--- NOTE | 2024-07-02 07:30 | NUR ---
Bedside shift report from SUNIL Patel. The pt awakens easily, minimal participation in conversation. Heparin gtt verified at bedside.
--- NOTE | 2024-07-02 08:00 | NUR ---
Pt is withdrawn, responds to conversation minimally, keeps her eyes closed and says that she is having generalized pain. Appears to be trying to sleep. sTates that the ativan she got last night for restlessness only worked for about an hour.
[2024-07-02 08:45] LABS: Bun/Creatinine Ratio 10.9 (12.0-20.0); Calcium, Blood 8.5 mg/dL (8.5-10.1); Creatinine, Blood 0.73 mg/dL (0.40-1.00); Potassium, Blood 3.5 mmol/L (3.5-5.5)
--- NOTE | 2024-07-02 12:08 | NUR ---
contacted pt's sister Elyssa at the pt's request. Also updated the pt demographic information as it was outdated, per the patient. Update given to Elyssa who was not aware of the pt's hospital admission. She said that she will try to call the pt by phone and come in to visit her.
--- NOTE | 2024-07-02 13:14 | NUR ---
Pt continues to sleep outside of patient care. She refused a shower, bed bath and sponge bath offered by the PCT. She states she is not feeling that well. Ambulatory independently to the bathroom for toileting needs. She has been eating occasionally.
[2024-07-02 21:11] LABS: Vancomycin, Trough 17.5 ug/mL (5.0-10.0)
[2024-07-02] MEDS ORDERED: LORazepam 0.5 MG Tab PO ONE (22:25)
[2024-07-03] VITALS (7 sets, daily range): BP systolic 135–150; BP diastolic 88–100
[2024-07-03 05:41] LABS: Hematocrit 27.4 % (33.0-51.0); Hemoglobin 8.8 g/dL (11.5-16.0); Mean Platelet Volume 9.1 fL (9.1-12.4); Platelet Count 313 K/mm3 (150-400)
--- NOTE | 2024-07-03 06:25 | NUR ---
NOC SUMMARY- NO NEW ISSUES NOTED. PT HAS BEEN RESTING QUIETLY. PT HAS BEEN VOIDING WELL. PT IRRITABLE AT TIMES BUT IS MOSTLY COOPERATIVE. PT ONLY COMPLAINT IS PERIODS OF ANXIETY. PT TOLERATING PO. CALL LIGHT IN REACH.
[2024-07-03] MEDS ORDERED: ALPRAZolam 0.25 MG Tab PO PRN (07:00)
[2024-07-03] MEDS ORDERED: Clarify Drug Order XX ONE (07:05)
[2024-07-03 08:52] LABS: BASOPHILS ABSOLUTE AUTO 0.03 K/mm3 (0.00-0.23); BASOPHILS PERCENT AUTO 0 % (0-2); EOSINOPHILS ABSOLUTE AUTO 0.05 K/mm3 (0.00-0.68); EOSINOPHILS PERCENT AUTO 1 % (0-6); Hematocrit 26.8 % (33.0-51.0); Hemoglobin 8.6 g/dL (11.5-16.0); IMMATURE GRAN ABSOLUTE AUTO 0.01 K/mm3 (0.00-0.10); IMMATURE GRAN PERCENT AUTO 0 % (0-1); LYMPHOCYTES ABSOLUTE AUTO 1.88 K/mm3 (0.84-5.20); LYMPHOCYTES PERCENT AUTO 24 % (21-46); MONOCYTES ABSOLUTE AUTO 0.47 K/mm3 (0.16-1.47); MONOCYTES PERCENT AUTO 6 % (4-13); Mean Corpuscular HGB 28.2 pg (26.0-34.0); Mean Corpuscular HGB Conc 32.1 g/dL (31.5-36.5); Mean Corpuscular Volume 88 fL (80-100); Mean Platelet Volume 8.8 fL (9.1-12.4); NEUTROPHILS ABSOLUTE AUTO 5.41 K/mm3 (1.96-9.15); NEUTROPHILS PERCENT AUTO 69 % (41-73); Platelet Count 310 K/mm3 (150-400); RDW Coefficient Variation 16.7 % (11.7-14.2); RDW Standard Deviation 53.2 fL (35.1-46.3); Red Blood Cell Count 3.05 M/mm3 (3.80-5.20); White Blood Cell Count 7.85 K/mm3 (4.00-11.30)
[2024-07-03 09:43] LABS: Percent Saturation 3.1 % (15.0-50.0)
[2024-07-03] MEDS ORDERED: Iron Dextran 50 MG / ML 2ML Vial IV ONE (11:10)
[2024-07-03] MEDS ORDERED: Iron Dextran 975 MG in NS 250 ML IV ONE (12:00)
[2024-07-03] MEDS ORDERED: HyDROXyzine HCl 25 MG Tab PO PRN (12:25)
[2024-07-03 12:29] LABS: HEPATITIS C AB CIA INTERP Negative (Negative); HEPATITIS C ANTIBODY CIA INDEX 0.04 IV
[2024-07-03 14:03] LABS: HIV 1,2 COMBO ANTIGEN/ANTIBODY Negative (Negative)
--- NOTE | 2024-07-03 16:15 | NUR ---
ARRIVAL TO UNIT PT ARRIVED TO UNIT AT 1615. RCVD REPORT FROM PCU NURSE. HEPARIN AND ANTIBIOTIC INFUSING PER EMAR. PT A&O X4. PT DENIES PAIN OR SOB. NO FURTHER NEEDS AT THIS TIME. BLINDS CLOSED PT REQUESTS TO SLEEP. CALL LIGHT IN REACH.
--- NOTE | 2024-07-03 16:33 | NUR ---
Pt DC'd to surgical floor. Report given to Ethan Mendoza, RN, and Cathleen Stephens, student RN. Pt remained drowsy throughout shift, waking briefly only for vitals, medication, and meals. Pt followed commands well throughout shift and was able to ambulate independently to the bathroom.
--- NOTE | 2024-07-03 18:30 | NUR ---
SHIFT SUMMARY PT TRANSFERRED FROM PCU. PT A&O X4. PT INDEPENDENT IN ROOM. MAKES NEEDS KNOWN. HEPARIN INFUSING PER EMAR. NO ACUTE CHANGES SINCE ARRIVAL TO UNIT.
--- NOTE | 2024-07-04 04:18 | NUR ---
SHIFT SUMMARY MIGUELITO WAS VERY LETHARGIC, BUT FULLY ORIENTED ON ASSESSMENT. PT DENIES PAIN SOB, AND CHEST PRESSURE. PT VPACED @ 60 ON TELE, NO EVENTS REPORTED BY TELEMETRY TONIGHT. PT VERY WITHDRAWN AND FLAT. COMPLIANT WITH CARE BUT DOES NOT WANT TO TALK ABOUT ANYTHING WITH ME. ASSESSMENT LIMITED BY PT PARTICIPATION. VSS STABLE WITH CONSISTENT HTN. NO ACUTE EVENTS OR NOTED CHANGES TO PT CONDITION TONIGHT.
[2024-07-04 04:27] VITALS: BP 151/101
[2024-07-04 04:29] LABS: BASOPHILS ABSOLUTE AUTO 0.03 K/mm3 (0.00-0.23); BASOPHILS PERCENT AUTO 0 % (0-2); EOSINOPHILS ABSOLUTE AUTO 0.08 K/mm3 (0.00-0.68); EOSINOPHILS PERCENT AUTO 1 % (0-6); Hematocrit 27.2 % (33.0-51.0); Hemoglobin 8.6 g/dL (11.5-16.0); IMMATURE GRAN ABSOLUTE AUTO 0.02 K/mm3 (0.00-0.10); IMMATURE GRAN PERCENT AUTO 0 % (0-1); LYMPHOCYTES ABSOLUTE AUTO 2.79 K/mm3 (0.84-5.20); LYMPHOCYTES PERCENT AUTO 30 % (21-46); MONOCYTES ABSOLUTE AUTO 0.75 K/mm3 (0.16-1.47); MONOCYTES PERCENT AUTO 8 % (4-13); Mean Corpuscular HGB 27.7 pg (26.0-34.0); Mean Corpuscular HGB Conc 31.6 g/dL (31.5-36.5); Mean Corpuscular Volume 88 fL (80-100); Mean Platelet Volume 8.6 fL (9.1-12.4); NEUTROPHILS ABSOLUTE AUTO 5.65 K/mm3 (1.96-9.15); NEUTROPHILS PERCENT AUTO 61 % (41-73); Platelet Count 307 K/mm3 (150-400); RDW Coefficient Variation 16.1 % (11.7-14.2); RDW Standard Deviation 51.8 fL (35.1-46.3); Red Blood Cell Count 3.11 M/mm3 (3.80-5.20); White Blood Cell Count 9.32 K/mm3 (4.00-11.30)
[2024-07-04 04:44] LABS: Vancomycin, Trough 17.5 ug/mL (5.0-10.0)
[2024-07-04] MEDS ORDERED: Dose Adjust by Pharmacy XX STA (05:47)
[2024-07-04 07:33] VITALS: BP 134/91
[2024-07-04] MEDS ORDERED: AmLODIPine Besylate 5 MG Tab PO SCH (09:00)
--- NOTE | 2024-07-04 11:30 | NUR ---
AMA PT CAME TO THE DESK AND STATED SHE WAS LEAVING, I ASKED HER TO WAIT IN HER ROOM SO I COULD REMOVE HER POWERGLIDE AND IV PRIOR TO LEAVING AND ASK HER MORE QUESTIONS. WHEN ASKED IF SHE WOULD WAIT TO SPEAK WITH A DOCTOR SHE SAID SHE WAS LEAVING BUT ALLOWED ME TO PULL HER POWERGLIDE AND IV. WENT OVER RISKS AND BENEFITS OF LEAVING AMA INCLUDING CLOTTING, INFECTIONS, SEPSIS OR EVEN . PT STATED SHE UNDERSTOOD BUT WAS LEAVING NO MATTER WHAT. NOTIFIED CHIEF RECORDIST AND DR. CHUA. ALL BELONGINGS TAKEN WITH PATIENT. WALKED OUT UNDER HER OWN POWER.
== END 2024-07-04 11:35 | disposition left against medical advice (07) | DRG 377 ==
LOC: ER 17:20 → PCU 17:21 → ERHOLD 17:21 → PCU 06-30 01:06 → SURS 06-30 15:54 → PCU 06-30 15:54 → SURS 07-03 16:10
PROVIDERS: Hospitalist; Student in an Organized Health Care Education/Training Program; Surgery; ADMIT Internal Medicine
PROC: 0DB98ZX Excision of Duodenum, Via Natural or Artificial Opening Endoscopic, Diagnostic (ICD-10-PCS; 2024-06-30)
PROC: 30233N1 Transfusion of Nonautologous Red Blood Cells into Peripheral Vein, Percutaneous Approach (ICD-10-PCS; 2024-06-30)
PROC: 0DB78ZX Excision of Stomach, Pylorus, Via Natural or Artificial Opening Endoscopic, Diagnostic (ICD-10-PCS; principal; 2024-06-30 13:00)
DX: K26.4 Chronic or unspecified duodenal ulcer with hemorrhage (principal); I33.0 Acute and subacute infective endocarditis; D62 Acute posthemorrhagic anemia; F11.20 Opioid dependence, uncomplicated; Z59.00 Homelessness unspecified; N39.0 Urinary tract infection, site not specified; F31.9 Bipolar disorder, unspecified; F17.210 Nicotine dependence, cigarettes, uncomplicated; K44.9 Diaphragmatic hernia without obstruction or gangrene; R79.1 Abnormal coagulation profile; F15.10 Other stimulant abuse, uncomplicated; I07.1 Rheumatic tricuspid insufficiency; B95.62 Methicillin resistant Staphylococcus aureus infection as the cause of diseases classified elsewhere; F06.4 Anxiety disorder due to known physiological condition; D50.9 Iron deficiency anemia, unspecified; E87.6 Hypokalemia; Z88.5 Allergy status to narcotic agent; Z79.82 Long term (current) use of aspirin; Z95.4 Presence of other heart-valve replacement; Z86.711 Personal history of pulmonary embolism; Z79.899 Other long term (current) drug therapy; Z79.01 Long term (current) use of anticoagulants; Z53.29 Procedure and treatment not carried out because of patient's decision for other reasons
CPT/HCPCS: 36415; 36430; 71045; 74177; 80048; 80053; 80202; 81001; 82607; 82728; 82746; 83540; 83550; 83880; 84703; 85014; 85018; 85025; 85027; 85049; 85520; 85610; 85730; 86803; 86850; 86900; 86901; 86923; 87040; 87086; 87389; 88305; 88342; 93005; 93010; 93306; 96374; 99285-25; A9270; C1751; G0378; J0692; J0696; J1644; J1750; J2003; J2060; J2405; J2470; J2704; J3370; J3480; J7030; J7040; J7050; J7120; P9016; Q9967